=== PATIENT | female | born 1940 | race Caucasian/White ===

== ENCOUNTER 2018-10-05 13:41 | Inpatient (IN) | payer OTHER ==
--- OUTSIDE RECORDS SUMMARY | 2018-10-05 13:44 | XMS REPORT | Clinical Summary ---
:1940 Author Organization [facility] Address [address] [place] [address] Care Team Providers Name Role Phone Kevin Owens MD Primary Care Provider Allergies Active Allergy Reactions Severity Noted Date Comments Sulfamethoxazole-Trimethop Itching 08/19/2016 rim Cephalexin Other (See Comments) 08/19/2016 Generalized edema Penicillins Other (See Comments) 08/19/2016 Generalized Edema Medications Medication Sig Dispensed Refills Start Date End Date Status atorvastatin (LIPITOR) Take 20 mg by 1 08/15/2016 Active 20 MG tablet mouth nightly. levothyroxine Take 37.5 mcg by 0 Active (SYNTHROID, LEVOXYL) 75 mouth every mcg tablet morning. aspirin (ECOTRIN) 81 MG Take 81 mg by 0 Active enteric coated tablet mouth daily. sitaGLIPtin-metformin Take 1 tablet by 0 Active (JANUMET) 50-500 mg per mouth 2 (two) tablet times a day with meals. irbesartan (AVAPRO) 300 Take 300 mg by 0 Active MG tablet mouth daily. clopidogrel (PLAVIX) 75 Take 1 tablet by 1 01/18/2017 Active mg tablet mouth daily. clonIDINE (CATAPRES) Take 1 tablet by 1 03/26/2017 Active 0.1 MG tablet mouth as needed for high blood pressure. glimepiride (AMARYL) 1 Take 1 tablet by 5 02/02/2017 Active MG tablet mouth daily. magnesium oxide Take 1 tablet by 3 01/14/2017 Active (MAG-OX) 400 mg tablet mouth daily. metoprolol succinate XL Take 1 tablet by 0 03/21/2017 Active (TOPROL-XL) 100 mg 24 mouth 2 (two) hr tablet times a day. NIFEdipine CC (ADALAT Take 1 tablet by 3 03/04/2017 Active CC) 30 MG 24 hr tablet mouth daily. isosorbide mononitrate Take 2 tablets by 3 01/26/2017 Active (IMDUR) 30 MG 24 hr mouth daily. tablet folic acid (FOLVITE) 1 Take 1 mg by 0 Active MG tablet mouth daily. esomeprazole (NexIUM) Take 40 mg by 0 Active 40 MG capsule mouth daily. furosemide (LASIX) 40 Take 40 mg by 0 Active mg tablet mouth 2 (two) times a day. 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 Last Filed Vital Signs Not on file Plan of Treatment Health Maintenance Due Date Last Done Comments DIABETIC RETINAL EYE EXAM 1940 DIABETIC FOOT EXAM 09/22/1950 URINE MICROALBUMIN 09/22/1951 SHINGLES VACCINES (#1) 09/22/1991 65+ PNEUMOCOCCAL VACCINE (1 of 2 - PCV13) 2006 INFLUENZA VACCINE 10/16/2018 Implants Implanted Type Area Magnetic Resonance Technologist Device Shelf Model / Identifier Expiration Serial / Lot Date Lead Pace Alton Mycrdl Unipol Tmpry Streamline - [id number] Cardiovascular N/A : [employer] [facility] 06/04/2018 [id number] / Implanted: Qty: 1 on 09/05/2016 by Maxime oTribio MD Implants N/A - CARDIAC / SRGRY Lead Pace Alton Mycrdl Unipol Tmpry Streamline - [id number] Cardiovascular N/A : [employer] [place] 06/13/2018 [id number] / Implanted: Qty: 1 on 09/05/2016 by Maxime Toribio MD Implants N/A - CARDIAC / SRGRY Drain Wnd Chnl 19fr 1/4in Rnd Hbls Fl-Flut Arline - [id number] Surgical N/A: BARD [employer] [id number] / Implanted: 09/05/2016 (Quantity not on file) Implants; N/A DIVISION / Expanders; Extenders; Surgical Wires Catheter Thor Rogers 36fr 20in Str Pvc - [id number] Surgical N/A: COVIDIEN [id number] / Implanted: 09/05/2016 (Quantity not on file) Implants; N/A GALEN / Expanders; HEALTHCARE Extenders; Surgical Wires [place] Perph Vasclr Ptfe 1.2x10cm 1.65mm - [id number] Vascular Graft N/A: BARD 04/14/2021 [id number] / Implanted: 09/05/2016 (Quantity not on file) N/A PERIPHERAL / VASCULAR [id number] Procedures Procedure Name Priority Date/Time Associated Diagnosis Comments ECHOCARDIOGRAM 2D Routine 05/21/2018 11:00 Hypertensive heart Results for this COMPLETE W MMODE AM CUSTOMER GREETER disease without procedure are in SPECTRAL COLOR DOPPLER heart failure the results (12572) section. after 10/04/2017 Results Echocardiogram complete w contrast and 3D if needed (05/21/2018 11:00 AM CUSTOMER GREETER) AoV Area, Vmax 1.67 cm2 HM [facility] AoV Area, VTI 1.82 cm2 [facility] AoV Mean PG 5.00 mmHg HM [facility] AoV Peak PG 9.61 mmHg [facility] AoV Vmax 1.55 m/s [facility] AoV VTI 0.35 m [facility] IVS,d 1.22 cm [facility] IVS/LVPW,2D 0.96 [facility] Left Atrium Dimension Anterior 4.00 cm [facility] LV,d 4.14 cm [facility] LV EF,2D 61.57 % [facility] LV,s 3.17 cm [facility] LVOT area 2.27 cm2 [facility] LVOT Diam,S 1.70 cm [facility] LVOT Vmax 1.28 m/s [facility] LVOT VTI 0.24 m [facility] LVPWD,d 1.27 cm [facility] TR Vpeak 2.28 mm/s [facility] MV E A ratio 1.10 [facility] TR pk grad 18.40 mmHg [facility] MR Vmax 2.96 m/s [facility] MR peak grad 35.05 mmHg [facility] E wave decelartion time 208.00 msec [facility] MV Peak A Dusty 0.84 m/s [facility] MV valve area p 1/2 method 3.65 cm2 [facility] MV Peak E Dusty 0.93 m/s [facility] MV stenosis pressure 1/2 time 60.32 ms [facility] AV LVOT peak gradient 5.20 mmHg [facility] Ao Root,d,2D 2.60 cm [facility] LV SYS VOL 35.29 ml [facility] LV RITCHIE VOL 75.95 ml [facility] LV SV Teich 2D 40.66 ml [facility] LV Vol s Teich PSAX 35.29 ml [facility] AoV Vmn 0.99 [facility] LV FS Teich 2D 27.29 [facility] MV AE ratio 0.91 [facility] LV FS Cube 2D 27.29 [facility] LVOT Vmn 0.71 [facility] Aov area Vmn 1.89 cm2 [facility] LVOT mean grad 2.00 mmHg [facility] MAX Pred HR 143.34 [facility] 85 of MPHR 121.84 [facility] Ao d LA s ratio 0.65 [facility] Calc MPHR 143.34 bpm [facility] LV SV Cube 2D 43.69 ml [facility] LV vol d cube 2D 70.96 ml [facility] LV vol s cube 2D 27.27 ml [facility] MV Decel slope 4.48 m/s2 [facility] Pred Exer Dur R1 6.10 [facility] Pred METS R1 4.73 [facility] Velocity Ratio (V1/V2) 0.83 m/s [facility] EF 53.54 % [facility] E/A ratio 1.11 [facility] Specimen Narrative Performed At Normal cardiac dimensions, except for moderate left atrial enlargement and [facility] mild LVH. Normal left ventricular systolic function and wall motion with a visually estimated EF of 60%. Color flow mapping including dopplerrevealed trace tricuspid regurgitation. There is no evidence of ASD or Pericardial effusion. Performing Organization Address [facility]/State/Zipcode Phone Number [facility] [address] [place] [address] after 10/04/2017 Insurance Payer Benefit Plan / Subscriber ID Effective Dates Phone Address Type Group HUMANA MEDICARE HUMANA MEDICARE xxxxxxxxx 2017-Present PPO PPO/PFFS/ERS [facility] ([place]) [place] [address] Advance Directives Patient has advance care planning documents on file. For more information, please contact:Yefri Oakes[address] [place] [address]
[2018-10-05 14:11] LABS: Absolute Lymphocytes (CBC) 0.5 K/uL (0.7-4.9); Basophils % 0.3 % (0-1.3); Hematocrit 30.6 % (36.0-45.0); Lymphocytes % 13.1 % (15.3-44.8); MPV 8.2 fL (7.6-11.3); RBC Red Blood Cell Count 3.39 M/uL (3.86-4.86)
[2018-10-05 14:31] LABS: ALT/SGPT 22 U/L (12-78); AST/SGOT 11 U/L (15-37); Alkaline Phosphatase 69 U/L (45-117); BUN Blood Urea Nitrogen 46 mg/dL (7-18); Bicarbonate 23 mmol/L (21-32); Bilirubin Direct 0.2 mg/dL (0-0.2); Bilirubin Total 0.7 mg/dL (0.2-1.0); Glucose Level 191 mg/dL (74-106); Magnesium 2.7 mg/dL (1.8-2.4); NT PRO-BNP 462 pg/mL (<450); Potassium 4.7 mmol/L (3.5-5.1); Protein, Total 7.1 g/dL (6.4-8.2); Sodium Level 139 mmol/L (136-145); Troponin (Emerg Dept Use Only) < 0.02 ng/mL (0.0-0.045)
--- NOTE | 2018-10-05 14:34 | RAD REPORT ---
EXAM DESCRIPTION: RAD - Chest Single View - 10/05/2018 2:06 pm CLINICAL HISTORY: CHEST PAIN Chest pain. COMPARISON: <Comparisons> FINDINGS: Portable technique limits examination quality. Mild linear subsegmental atelectasis is present in the left mid lung. Changes of a prior CABG are not ed. No displaced fractures.Sternotomy wires present. Heart size is within normal limits. IMPRESSION: No acute intrathoracic process suspected.
[2018-10-05 14:53] LABS: Protime INR 1.04
--- NOTE | 2018-10-05 17:10 | ER ---
Nurse's Notes [facility] Name: Jenna Oropeza Age: 78 yrs Sex: Female : 1940 Arrival Date: 10/05/2018 Time: 13:43 Bed 23 Private MD: Kevin Owens V Diagnosis: Unstable angina Presentation: 10/05 13:50 Presenting complaint: buzzing sound in right ear decreased hearing in right ear, hb dizziness, nausea, and chest tightness that started 15 mins FLIGHT SERVICE AGENT. Transition of care: patient was not received from another setting of care. Onset of symptoms was October 05, 2018 at 13:30. Risk Assessment: Do you want to hurt yourself or someone else? Patient reports no desire to harm self or others. Care prior to arrival: None. 13:50 Method Of Arrival: Wheelchair hb 13:50 Acuity: MARIBELL 3 hb 14:11 Initial Sepsis Screen: Does the patient meet any 2 criteria? No. Patient's initial ca1 sepsis screen is negative. Does the patient have a suspected source of infection? No. Patient's initial sepsis screen is negative. Historical: - Allergies: 13:53 PENICILLINS; hb 13:53 sulfamethoxazole-trimethoprim; hb - Home Meds: 16:47 magnesium oxide 400 mg Oral tab [Active]; Theracran oral oral [Active]; ranolazine oral ca1 500mg oral 1 tab 2 times per day [Active]; carvedilol 25 mg oral tab 1 tab 2 times per day [Active]; atorvastatin 20 mg oral tab 1 tab once daily [Active]; nifedipine 30 mg Oral TbER 1 tab once daily [Active]; glimepiride 4 mg Oral tab .5 tab once daily [Active]; pantoprazole 40 mg oral TbEC 1 tab once daily [Active]; isosorbide mononitrate 60 mg Oral Tb24 1 tab once daily [Active]; folic acid 1 mg Oral tab 1 tab once daily [Active]; Januvia 100 mg oral tab 1 tab once daily [Active]; losartan 100 mg oral tab 1 tab once daily [Active]; clopidogrel 75 mg oral tab 1 tab once daily [Active]; - PMHx: 17:11 CAD; Diabetes - NIDDM; High Cholesterol; Hypertension; ca1 - PSHx: 13:53 cardiac stents; 10 inches of intestines taken out; Hysterectomy; hb 17:11 CABG; Appendectomy; ca1 - Immunization history:: Adult Immunizations up to date. - Social history:: Smoking status: Patient/guardian denies using tobacco. - Ebola Screening: : No symptoms or risks identified at this time. Screenin:06 Abuse screen: Denies threats or abuse. Denies injuries from another. Nutritional ca1 screening: No deficits noted. Tuberculosis screening: No symptoms or risk factors identified. Fall Risk IV access (20 points). Assessment: 13:48 Reassessment: Dr. Weiss at bedside evaluate pt. hb 14:06 General: Appears in no apparent distress. comfortable, Behavior is calm, cooperative, ca1 appropriate for age. General:. Pain: Complains of pain in chest Pain does not radiate. Pain currently is 2 out of 10 on a pain scale. Quality of pain is described as pressure, Pain began 30 min ago. Is intermittent. Neuro: Level of Consciousness is awake, alert, obeys commands, Oriented to person, place, time, situation. Neuro: Anesthesiology Teacher are equal bilaterally Moves all extremities. Speech is normal, Facial symmetry appears normal. Neuro:. Neuro: Reports dizziness. Cardiovascular: Heart tones S1 S2 present Capillary refill < 3 seconds Patient's skin is warm and dry. Pulses are all present. Edema is absent. Rhythm is sinus bradycardia. Respiratory: Airway is patent Respiratory effort is even, unlabored, Respiratory pattern is regular, symmetrical, Breath sounds are clear bilaterally. GI: Abdomen is round non-distended, Bowel sounds present X 4 quads. Abd is soft and non tender X 4 quads. Reports nausea. : No deficits noted. No signs and/or symptoms were reported regarding the genitourinary system. EENT: Reports ringing in right ear. Derm: Skin is intact, is healthy with good turgor, Skin is pink, warm \T\ dry. Musculoskeletal: Circulation, motion, and sensation intact. Capillary refill < 3 seconds, Range of motion: intact in all extremities. 14:44 Reassessment: Patient appears in no apparent distress at this time. Patient and/or ca1 family updated on plan of care and expected duration. Pain level reassessed. Patient is alert, oriented x 3, equal unlabored respirations, skin warm/dry/pink. Family at bedside. Pt talking to family. 15:14 Reassessment: Patient appears in no apparent distress at this time. Patient and/or ca1 family updated on plan of care and expected duration. Pain level reassessed. Patient is alert, oriented x 3, equal unlabored respirations, skin warm/dry/pink. Dr. Weiss at bedside to discuss test results and plan of care. 16:05 Reassessment: Patient appears in no apparent distress at this time. Patient and/or ca1 family updated on plan of care and expected duration. Pain level reassessed. Patient is alert, oriented x 3, equal unlabored respirations, skin warm/dry/pink. Pt on the phone, talking to family. 16:49 Reassessment: Patient appears in no apparent distress at this time. Patient is alert, ca1 oriented x 3, equal unlabored respirations, skin warm/dry/pink. Dr. Weiss at bedside. 17:32 Reassessment: Patient appears in no apparent distress at this time. Patient is alert, ca1 oriented x 3, equal unlabored respirations, skin warm/dry/pink. Pt eating dinner. 18:30 Reassessment: Patient appears in no apparent distress at this time. Patient and/or ca1 family updated on plan of care and expected duration. Pain level reassessed. Patient is alert, oriented x 3, equal unlabored respirations, skin warm/dry/pink. Awaiting room assignment. 19:23 Reassessment: Patient appears in no apparent distress at this time. Patient and/or ca1 family updated on plan of care and expected duration. Pain level reassessed. Patient is alert, oriented x 3, equal unlabored respirations, skin warm/dry/pink. 19:51 Reassessment: Dr. Owens at bedside. ca1 Vital Signs: 13:52 BP 148 / 57; Pulse 55; Resp 16; Temp 98.2; Pulse Ox 98% on R/A; Weight 79.38 kg; Height hb 5 ft. 6 in. (167.64 cm); Pain 0/10; 14:06 BP 123 / 54; Pulse 52; Resp 14; Pulse Ox 95% on R/A; ca1 14:44 BP 132 / 55; Pulse 53; Resp 13 S; Pulse Ox 95% on R/A; ca1 15:03 BP 145 / 49; Pulse 55; Resp 14 S; Pulse Ox 94% on R/A; ca1 16:05 BP 166 / 52; Pulse 54; Resp 13 S; Temp 97.8(O); Pulse Ox 97% on R/A; ca1 16:30 BP 160 / 49; Pulse 52; Resp 13 S; Pulse Ox 95% ; ca1 17:03 BP 166 / 55; Pulse 54; Resp 18 S; Temp 98(O); Pulse Ox 98% on R/A; ca1 17:45 BP 153 / 52; Pulse 59; Resp 14 S; Temp 98(O); Pulse Ox 98% on R/A; ca1 18:39 BP 155 / 46; Pulse 59; Resp 20 S; Pulse Ox 98% on R/A; ca1 19:23 BP 145 / 51; Pulse 60; Resp 15 S; Temp 98.1(O); Pulse Ox 96% on R/A; ca1 13:52 Body Mass Index 28.25 (79.38 kg, 167.64 cm) hb ED Course: 13:43 Patient arrived in ED. mr 13:43 Kevin Owens MD is Private Physician. mr 13:47 Dandy Weiss MD is Attending Physician. gs 13:52 Triage completed. hb 13:53 Arm band placed on. hb 14:03 No provider procedures requiring assistance completed. Inserted saline lock: 20 gauge ca1 in right antecubital area, using aseptic technique. Blood collected. Patient maintains SpO2 saturation greater than 95% on room air. 14:04 XRAY Chest (1 view) In Process Unspecified. EDMS 14:05 Alina Lee, RN is Primary Nurse. ca1 14:06 Patient has correct armband on for positive identification. Placed in gown. Bed in low ca1 position. Call light in reach. Side rails up X 1. price changer on. Pulse ox on. NIBP on. Warm blanket given. 16:18 Troponin (emerg Dept Use Only) Sent. ca1 16:18 Repeat lab(s) drawn. by id, sent to lab. ca1 17:06 Kevin Owens MD is Hospitalizing Provider. gs 18:41 Patient admitted, IV remains in place. ca1 Administered Medications: 17:27 Drug: Aspirin Chewable Tablet 324 mg Route: PO; ca1 18:31 Follow up: Response: No adverse reaction ca1 Point of Care Testing: Blood Glucose: 13:50 Blood Glucose: 151 mg/dL; hb Ranges: Outcome: 17:08 Decision to Hospitalize by Provider. gs 19:33 Admitted to Med/surg accompanied by tech, via wheelchair, room 214, with chart, Report ca1 called to Natalya Galvez RN 19:33 Condition: stable 19:33 Instructed on the need for admit. 19:57 Patient left the ED. ca1 Signatures: Dispatcher [employer] TARYN Salena Adams MonteroMadelaine RN RN hb Dandy Weiss MD MD Jesus, GEOFF Fuller RN ca1 Corrections: (The following items were deleted from the chart) 15:29 13:50 Presenting complaint: buzzing sound in right era, decreased hearing in right ear, hb dizziness, nausea, and chest tightness that started 15 mins FLIGHT SERVICE AGENT hb
--- NOTE | 2018-10-05 17:10 | EDPHYS ---
Physician Documentation [facility] Name: Jenna Oropeza Age: 78 yrs Sex: Female : 1940 Arrival Date: 10/05/2018 Time: 13:43 Bed 23 Private MD: Kevin Owens V ED Physician Dandy Weiss HPI: 10/05 17:29 This 78 yrs old Female presents to ER via Wheelchair with complaints of gs Dizziness. 17:29 The patient presents with lightheadedness. Onset: The symptoms/episode began/occurred gs acutely, just prior to arrival. Modifying factors: The symptoms are alleviated by nothing, the symptoms are aggravated by nothing. Associated signs and symptoms: Pertinent positives: chest pain. Severity of symptoms: At their worst the symptoms were moderate in the emergency department the symptoms have resolved. The patient has experienced similar episodes in the past, a few times. OVER PAST WEEK INCREASED EPISODES OF CHEST PAIN REQUIRING INCREASED USED OF NTG SPRAY. Historical: - Allergies: 13:53 PENICILLINS; hb 13:53 sulfamethoxazole-trimethoprim; hb - Home Meds: 16:47 magnesium oxide 400 mg Oral tab [Active]; Theracran oral oral [Active]; ranolazine oral ca1 500mg oral 1 tab 2 times per day [Active]; carvedilol 25 mg oral tab 1 tab 2 times per day [Active]; atorvastatin 20 mg oral tab 1 tab once daily [Active]; nifedipine 30 mg Oral TbER 1 tab once daily [Active]; glimepiride 4 mg Oral tab .5 tab once daily [Active]; pantoprazole 40 mg oral TbEC 1 tab once daily [Active]; isosorbide mononitrate 60 mg Oral Tb24 1 tab once daily [Active]; folic acid 1 mg Oral tab 1 tab once daily [Active]; Januvia 100 mg oral tab 1 tab once daily [Active]; losartan 100 mg oral tab 1 tab once daily [Active]; clopidogrel 75 mg oral tab 1 tab once daily [Active]; - PMHx: 17:11 CAD; Diabetes - NIDDM; High Cholesterol; Hypertension; ca1 - PSHx: 13:53 cardiac stents; 10 inches of intestines taken out; Hysterectomy; hb 17:11 CABG; Appendectomy; ca1 - Immunization history:: Adult Immunizations up to date. - Social history:: Smoking status: Patient/guardian denies using tobacco. - Ebola Screening: : No symptoms or risks identified at this time. ROS: 17:29 All other systems are negative. gs 18:11 Cardiovascular: Positive for chest pain, describes as pressure typical chest pain she gs has had in past and increased frequency this week. Exam: 17:29 Head/Face: Normocephalic, atraumatic. Eyes: Pupils equal round and reactive to light, gs extra-ocular motions intact. Lids and lashes normal. Conjunctiva and sclera are non-icteric and not injected. Cornea within normal limits. Periorbital areas with no swelling, redness, or edema. ENT: Nares patent. No nasal discharge, no septal abnormalities noted. Tympanic membranes are normal and external auditory canals are clear. Oropharynx with no redness, swelling, or masses, exudates, or evidence of obstruction, uvula midline. Mucous membranes moist. Neck: Trachea midline, no thyromegaly or masses palpated, and no cervical lymphadenopathy. Supple, full range of motion without nuchal rigidity, or vertebral point tenderness. No Meningismus. Chest/axilla: Normal chest wall appearance and motion. Nontender with no deformity. No lesions are appreciated. Cardiovascular: Regular rate and rhythm with a normal S1 and S2. No gallops, murmurs, or rubs. Normal PMI, no JVD. No pulse deficits. Respiratory: Lungs have equal breath sounds bilaterally, clear to auscultation and percussion. No rales, rhonchi or wheezes noted. No increased work of breathing, no retractions or nasal flaring. Abdomen/GI: Soft, non-tender, with normal bowel sounds. No distension or tympany. No guarding or rebound. No evidence of tenderness throughout. Back: No spinal tenderness. No costovertebral tenderness. Full range of motion. Skin: Warm, dry with normal turgor. Normal color with no rashes, no lesions, and no evidence of cellulitis. MS/ Extremity: Pulses equal, no cyanosis. Neurovascular intact. Full, normal range of motion. Neuro: Awake and alert, GCS 15, oriented to person, place, time, and situation. Cranial nerves II-XII grossly intact. Motor strength 5/5 in all extremities. Sensory grossly intact. Cerebellar exam normal. Normal gait. 17:29 Constitutional: The patient appears alert, awake. 17:29 ECG was reviewed by the Attending Physician. Vital Signs: 13:52 BP 148 / 57; Pulse 55; Resp 16; Temp 98.2; Pulse Ox 98% on R/A; Weight 79.38 kg; Height hb 5 ft. 6 in. (167.64 cm); Pain 0/10; 14:06 BP 123 / 54; Pulse 52; Resp 14; Pulse Ox 95% on R/A; ca1 14:44 BP 132 / 55; Pulse 53; Resp 13 S; Pulse Ox 95% on R/A; ca1 15:03 BP 145 / 49; Pulse 55; Resp 14 S; Pulse Ox 94% on R/A; ca1 16:05 BP 166 / 52; Pulse 54; Resp 13 S; Temp 97.8(O); Pulse Ox 97% on R/A; ca1 16:30 BP 160 / 49; Pulse 52; Resp 13 S; Pulse Ox 95% ; ca1 17:03 BP 166 / 55; Pulse 54; Resp 18 S; Temp 98(O); Pulse Ox 98% on R/A; ca1 17:45 BP 153 / 52; Pulse 59; Resp 14 S; Temp 98(O); Pulse Ox 98% on R/A; ca1 18:39 BP 155 / 46; Pulse 59; Resp 20 S; Pulse Ox 98% on R/A; ca1 19:23 BP 145 / 51; Pulse 60; Resp 15 S; Temp 98.1(O); Pulse Ox 96% on R/A; ca1 13:52 Body Mass Index 28.25 (79.38 kg, 167.64 cm) hb MDM: 13:52 Patient medically screened. gs 16:59 HEART Score: History: Highly Suspicious (2), ECG: Non specific repolarization gs disturbance / LBTB / PM (1), Age: > or = 65 years (2), Risk Factors: > or = 3 Risk factors for atherosclerotic disease (2), [Hypercholesterolemia] [Hypertension] Troponin: < or = 1 x Normal Limit (0). 17:29 Differential diagnosis: cardiac arrhythmia, vertigo, UNSTABLE ANGINA, CAD. Data gs reviewed: vital signs, nurses notes. Counseling: I had a detailed discussion with the patient and/or guardian regarding: the historical points, exam findings, and any diagnostic results supporting the discharge/admit diagnosis, the need for further work-up and treatment in the hospital. Admission orders: after a detailed discussion of the patient's condition and case, the admit orders are written by me. ED course: SPOKE WITH CONNOR WILL SEE SOON. 10/05 13:52 Order name: Basic Metabolic Panel 10/05 13:52 Order name: CBC with Diff 10/05 13:52 Order name: LFT's 10/05 13:52 Order name: Magnesium; Complete Time: 14:38 10/05 13:52 Order name: NT PRO-BNP; Complete Time: 14:38 10/05 13:52 Order name: PT-INR; Complete Time: 16:03 10/05 13:52 Order name: Troponin (emerg Dept Use Only); Complete Time: 14:38 10/05 13:53 Order name: Glucose, Ancillary Testing; Complete Time: 14:38 [facility] 10/05 13:53 Order name: Basic Metabolic Panel; Complete Time: 14:38 [facility] 10/05 13:53 Order name: CBC with Automated Diff; Complete Time: 14:38 [facility] 10/05 13:53 Order name: Liver (Hepatic) Function; Complete Time: 14:38 [facility] 10/05 15:15 Order name: Troponin (emerg Dept Use Only); Complete Time: 16:44 10/05 18:07 Order name: Troponin I [facility] 10/05 18:07 Order name: Troponin I [facility] 10/05 13:52 Order name: XRAY Chest (1 view); Complete Time: 14:38 10/05 13:52 Order name: EKG; Complete Time: 13:54 10/05 13:52 Order name: Cardiac monitoring; Complete Time: 14:12 10/05 13:52 Order name: EKG - Nurse/Tech; Complete Time: 14:12 10/05 13:52 Order name: IV Saline Lock; Complete Time: 14:12 10/05 13:52 Order name: Labs collected and sent; Complete Time: 14:12 10/05 13:52 Order name: O2 Per Protocol; Complete Time: 14:12 10/05 13:52 Order name: O2 Sat Monitoring; Complete Time: 14:12 10/05 18:07 Order name: EKG Electrocardiogram [facility] 10/05 18:07 Order name: EKG Electrocardiogram [facility] 10/05 18:07 Order name: EKG Electrocardiogram [facility] 10/05 18:07 Order name: EKG Electrocardiogram [facility] EC:29 Rate is 70 beats/min. Rhythm is regular. MD interval is normal. QRS interval is normal. gs QT interval is normal. T waves are Inverted in lead aVL. ST Segment is depressed in lead aVL. Clinical impression: NSR w/ Non-specific ST/T Changes and MIMINAL J POINT ELEVATION LEAD III. Interpreted by me. Administered Medications: 17:27 Drug: Aspirin Chewable Tablet 324 mg Route: PO; ca1 18:31 Follow up: Response: No adverse reaction ca1 Point of Care Testing: Blood Glucose: 13:50 Blood Glucose: 151 mg/dL; hb Ranges: Critical Glucose Levels:Adult <50 mg/dl or >400 mg/dl <40 mg/dl or >180 mg/dl Disposition: 10/05/18 17:08 Hospitalization ordered by Kevin Owens for Inpatient Admission. Preliminary diagnosis is Unstable angina. - Bed requested for Telemetry/MedSurg (Inpatient). - Status is Inpatient Admission. ca1 - Condition is Stable. - Problem is new. - Symptoms are resolved. UTI on Admission? No Signatures: Dispatcher [employer] [facility] Neelima Tinoco RN RN Madelaine Montero RN RN Dandy Weiss MD MD Alina Lee RN RN [facility] Corrections: (The following items were deleted from the chart) 18:31 17:08 Hospitalization Ordered by Kevin Owens MD for Inpatient Admission. Preliminary dw diagnosis is Unstable angina. Bed requested for Telemetry/MedSurg (Inpatient). Status is Inpatient Admission. Condition is Stable. Problem is new. Symptoms are resolved. UTI on Admission? No. gs 19:57 18:31 10/05/2018 17:08 Hospitalization Ordered by Kevin Owens MD for Inpatient ca1 Admission. Preliminary diagnosis is Unstable angina. Bed requested for Telemetry/MedSurg (Inpatient). Status is Inpatient Admission. Condition is Stable. Problem is new. Symptoms are resolved. UTI on Admission? No. dw
[2018-10-05] MEDS ORDERED: ASPIRIN 81 MG CHEWABLE TABLET ONE (17:42)
[2018-10-05] MEDS ORDERED: ACETAMINOPHEN 500 MG TAB PO PRN (17:57)
--- NOTE | 2018-10-05 20:41 | P.SSS ---
Patient History Date of Service: 10/05/18 Reason for admission: DIAPHORESIS AND R EAR PAIN History of Present Illness: MS. HOYT IS A KNOWN CARDIAC PATIENT WHO HAS LATELY HAD A VERY DIFFICULT TIME CONTROLLING BP. SHE HAS BEEN BETTER AFTER ADDING SPIRONOLACTONE TO HER MULITIDRUG REGIMEN. SHE USED TO GO TO DR. THOMAS BUT LATER CHANGED TO DR CARRASCO IN [place]. I HAVE ASKED HER TO GET LOCAL APPLIQUE SEWER. SHE TODAY WENT TO URGENT CARE FOR R EAR FULLNESS AND PAIN. SHE WHILE THER HAD EPISODE OF DIAPHORESIS SO SHE WAS SENT TO ER SHE HAS NO CHEST PAIN OR ARM PAIN. Allergies Penicillins Allergy (Intermediate, Verified 10/08/11 20:12) Hives/Rash sulfamethoxazole [From Bactrim] Allergy (Mild, Verified 10/08/11 20:12) Itching trimethoprim [From Bactrim] Allergy (Mild, Verified 10/08/11 20:12) Itching Home Medications: Aspirin 81 mg PO DAILY 10/09/11 Atorvastatin Calcium 20 mg PO BEDTIME 10/09/11 Clopidogrel Bisulfate [Plavix] 75 mg PO DAILY 10/09/11 Estrogens,Conjugated [Premarin] 0.3 mg PO DAILY 10/09/11 Hydrochlorothiazide 25 mg PO DAILY 10/09/11 Irbesartan [Avapro] 300 mg PO DAILY 10/09/11 Levothyroxine [Synthroid] 0.075 mg PO DAILY 10/09/11 Metoprolol Tartrate [Lopressor] 100 mg PO BID 10/09/11 Nifedipine [Nifedipine ER] 60 mg PO DAILY 10/09/11 Isosorbide Mononitrate [Imdur] 30 mg PO DAILY #30 tab.sr.24h 07/01/14 - Past Medical/Surgical History Diabetic: Yes -: DM-NIDDM -: HTN -: Hyperlipidemia -: cardiac stents -: 10 inches of intestines removed - Social History Alcohol use: Yes CD- Drugs: No Caffeine use: Yes Review of Systems 10-point ROS is otherwise unremarkable Physical Examination - Vital Signs Temperature: 98.1 F Blood Pressure: 145/51 Pulse: 60 Respirations: 15 - Physical Exam General: Alert, In no apparent distress HEENT: Atraumatic, PERRLA, Mucous membr. moist/pink, EOMI (NORMAL TM ON R SIDE. NO SIGNS OF INFECTION.), Sclerae nonicteric Neck: Supple, 2+ carotid pulse no bruit, No LAD, Without JVD or thyroid abnormality Respiratory: Clear to auscultation bilaterally, Normal air movement Cardiovascular: Regular rate/rhythm, Normal S1 S2 Gastrointestinal: Normal bowel sounds, No tenderness, Masses (LARGE ABDOMEN WALL HERNIAS, OLD, UNCHANGED. ) Musculoskeletal: No tenderness Integumentary: No rashes Neurological: Normal gait, Normal speech, Normal strength at 5/5 x4 extr, Normal tone, Normal affect Lymphatics: No axilla or inguinal lymphadenopathy - Studies Laboratory Data (last 24 hrs) 10/05/18 14:03: PT 12.3, INR 1.04 10/05/18 14:03: WBC 3.9 L, Hgb 10.4 L, Hct 30.6 L, Plt Count 187 10/05/18 14:03: Sodium 139, Potassium 4.7, BUN 46 H, Creatinine 2.67 H, Glucose 191 H, Magnesium 2.7 H, Total Bilirubin 0.7, AST 11 L, ALT 22, Alkaline Phosphatase 69 - Diagnosis (Problem(s)) (1) Diaphoresis Current Visit: Yes Status: Acute Plan: SHE HAS NO CHEST PAIN. THIS COULD BE RELATED TO VIRAL INFECTION THAN CARDIAC EVENT. SHE HAS HAD STENTS IN CORONARY ARTERIES ABOUT A YEAR AGO. SHE MAY NEED OUTPATIENT STRESS TEST. (2) Otalgia Current Visit: Yes Status: Acute Plan: I DON'T SEE INFECTION. I TOLD HER I WILL FU IN AM TO SEE HOW SHE IS DOING. Qualifiers: Laterality: right Qualified Code(s): H92.01 - Otalgia, right ear - Disposition Disposition: ROUTINE DISCHARGE
[2018-10-05] MEDS ORDERED: ENOXAPARIN 80 MG/0.8 ML SQ SCH (21:00)
[2018-10-05 21:19] VITALS: BMI 30.7
[2018-10-05] MEDS: ENOXAPARIN 80 MG/0.8 ML SQ SCH (21:52)
[2018-10-05] MEDS: NACHLORIDE 0.45% 1,000 ML IV SCH (21:53)
--- NOTE | 2018-10-05 22:04 | CON ---
Date of Consultation: 10/05/2018 Reason For Consultation: Atypical chest pain and dizziness. History Of Present Illness: Ms. Oropeza is a 78-year-old white woman. I saw her in 2014 last. At t hat time, she had coronary artery disease, status post stents. Since then in 2017, she underwent cor onary artery bypass surgery x3. At that time, she did not have an NV. She was being worked up for c ardiac clearance for an abdominal surgery and was found to have a positive stress test. No congestiv e heart failure. CABG was done and she has done well since. She had a stress test last year by Dr. Terrazas, partner is a Dr. Duncan, which was negative. She comes in mostly with dizziness, right ear pain, some diaphoresis. She was placed on antibiotics. She was sent to the emergency room from [facility] because of her diaphoresis. She was admitted. Denied any chest pain, nausea, vomiting, PND, orthopnea, pedal edema, palpitations, or syncope. Her troponin is negative. Her BNP is 462. Her E KG is negative. Chest x-ray is negative. Allergies: SHE IS ALLERGIC TO PENICILLIN AND SULFA. Review of Systems: Negative. Social History: Negative. Family History: Negative. Medications: At home include aspirin, hydrochlorothiazide, Plavix, Avapro, Lipitor, Imdur, Synthroid , estrogen, and nifedipine. Past Medical History: Include diabetes; hypertension; dyslipidemia; coronary artery disease, status post CABG; thyroid issues; and partial colectomy. Physical Examination: Vital Signs: Stable, afebrile. HEENT: Negative. Neck: Supple, no bruit. Chest: Clear. Cardiac: Revealed a regular rhythm and rate. No murmurs, gallops, or rubs. Abdomen: Benign. Extremities: Revealed no clubbing, cyanosis, or edema. Skin: Dry and intact. Neurological: She was nonfocal. Pulses were present distally bilaterally. Diagnostic Data: As mentioned earlier. Also has a creatinine of 2.67, glucose 191. Impression And Plan: 1.Dizziness and diaphoresis, most likely secondary to an ear infection. 2.History of coronary artery disease, status post coronary artery bypass graft. Patient is not havi ng any chest pain. She has some neck pain. Certainly doing another stress test sometime in the futu re may be reasonable, but then does not have to be done as an inpatient. 3.Diabetes. 4.Hypertension, well controlled. 5.Dyslipidemia, well controlled. 6.Hypothyroidism. 7.Status post partial colectomy and this is my biggest concern as her kidney function with a creatin ine of 2.67. Patient is apparently unaware of having any renal issues. I think we need to consider changing her medical regimen. Maybe she should be off Avapro and off hydrochlorothiazide temporarily and watch her creatinine. She should have a Nephrology consult. From a cardiac standpoint, there i s an echo pending for tomorrow. I think she can go home and follow up with Dr. Duncan in [place] in the near future regarding maybe getting another stress test. I will discuss the case with Dr. Owens. ADAN/GOGO Voice ID: [id number] Report ID: [id number]
[2018-10-05 23:16] LABS: Urine Appearance CLOUDY; Urine Bilirubin NEGATIVE (NEG); Urine Blood NEGATIVE (NEG); Urine Color YELLOW; Urine Glucose NEGATIVE (NEG); Urine Protein NEGATIVE (NEG); Urine Specific Gravity 1.015 (1.005-1.030); Urine Urobilinogen 0.2 mg/dL (0.2-1.0); Urine pH 5.5 (5.0-7.0)
[2018-10-05 23:22] LABS: Urine Microscopic Reflex ORDER UMIC
[2018-10-06 00:37] LABS: Urine Bacteria >50 /HPF (<20); Urine Culture Reflex Order REFLEXED; Urine RBC <5 /HPF (NONE SEEN)
[2018-10-06 05:14] LABS: Absolute Lymphocytes (CBC) 0.6 K/uL (0.7-4.9); Basophils % 0.3 % (0-1.3); Hematocrit 27.1 % (36.0-45.0); Lymphocytes % 18.5 % (15.3-44.8); MPV 7.8 fL (7.6-11.3); RBC Red Blood Cell Count 2.96 M/uL (3.86-4.86)
[2018-10-06 05:16] LABS: Potassium 4.2 mmol/L (3.5-5.1)
[2018-10-06 07:58] LABS: Blood Morphology Comment NOT SEEN (NOT SEEN); Platelet Estimate ADEQ
[2018-10-06] MEDS: CARVEDILOL 25 MG TAB PO SCH ×2 (09:36→21:23)
[2018-10-06] MEDS: LOSARTAN POTASSIUM 50 MG TABLET PO SCH (09:36)
[2018-10-06] MEDS: CLOPIDOGREL 75 MG TABLET PO SCH (09:36)
[2018-10-06] MEDS: ASPIRIN EC 81 MG TAB PO SCH (09:36)
[2018-10-06] MEDS: ENOXAPARIN 80 MG/0.8 ML SQ SCH (09:37)
[2018-10-06] MEDS: FOLIC ACID 1 MG TABLET PO SCH (09:37)
[2018-10-06] MEDS: ISOSORBIDE MONO SR 30 MG TAB PO SCH (09:37)
[2018-10-06] MEDS: SITAGLIPTIN PHOS 100 MG TAB PO SCH (09:37)
[2018-10-06] MEDS: MAGNESIUM OXIDE 400 MG TAB PO SCH ×2 (09:41→21:23)
[2018-10-06] MEDS ORDERED: NIFEDIPINE XL 30 MG TABLET PO SCH ×2 (10:00→15:00)
--- NOTE | 2018-10-06 10:01 | RAD REPORT ---
EXAM DESCRIPTION: US - Pelvis Complete - 10/06/2018 9:25 am CLINICAL HISTORY: Pelvic pain/urinary retention COMPARISON: None FINDINGS: The patient had voided prior to the procedure Bladder volume equals 95 cc. No ascites Hysterectomy Right ovary normal in size and echotexture. Left ovary is not seen. Right and left adnexal unremarkable IMPRESSION: The patient had voided prior to the procedure Bladder volume equals 95 cc.
--- NOTE | 2018-10-06 10:05 | RAD REPORT ---
EXAM DESCRIPTION: US - Abdomen Exam Complete - 10/06/2018 9:25 am CLINICAL HISTORY: Abdominal pain COMPARISON: 2016 FINDINGS: The liver has a mildly increased echotexture. A gallstone is not seen. The gallbladder wall is not thickened. The biliary tree is normal caliber. The pancreas pancreatic head and body normal in size and echotexture. Pancreatic tail not well seen s econdary to overlying bowel gas. The right kidney measures 9 centimeters with a mildly increased echotexture. 8 millimeters cyst The left kidney measures 9 centimeters with a mildly increased echotexture. The spleen measures 10 centimeters. The abdominal aorta and inferior vena cava only partially imaged secondary to overlying bowel gas wit hout visualization of an abnormality IMPRESSION: Increased hepatic echotexture consistent with fatty infiltration Mildly increased renal echotexture may indicate parenchymal disease
--- NOTE | 2018-10-06 10:15 | EKG ---
Test Date: 2018-10-06 Test Time: 08:00:43 Environmental Studies Department Chair: DOROTHEA MEASUREMENT RESULTS: Intervals: Rate: 56 OH: 196 QRSD: 100 QT: 452 QTc: 436 [place]: P: 70 OH: 196 QRS: 83 T: 76 INTERPRETIVE STATEMENTS: Sinus bradycardia with premature atrial complexes Otherwise normal ECG Compared to ECG 10/05/2018 22:28:48 Aberrant conduction of supraventricular beat(s) no longer present Electronically Signed On 10-06-18 10:15:40 CDT by Marlon Cardenas
--- NOTE | 2018-10-06 10:15 | EKG ---
Test Date: 2018-10-05 Test Time: 22:28:48 Milk Processing Worker: RT Avila MEASUREMENT RESULTS: Intervals: Rate: 55 ID: [id number] QRSD: 90 QT: 476 QTc: 455 [place]: P: 55 ID: [id number] QRS: 65 T: 78 INTERPRETIVE STATEMENTS: Sinus bradycardia with premature atrial complexes with aberrant conduction RSR' or QR pattern in V1 suggests right ventricular conduction delay Borderline ECG Compared to ECG 10/05/2018 13:58:08 Atrial premature complex(es) now present Aberrant conduction of supraventricular beat(s) now present Electronically Signed On 10-06-18 10:16:01 CDT by Marlon Cardenas
[2018-10-06] MEDS: NACHLORIDE 0.45% 1,000 ML IV SCH ×2 (10:20→13:25)
--- NOTE | 2018-10-06 10:20 | EKG ---
Test Date: 2018-10-05 Test Time: 13:58:08 Welt Rander: SWG MEASUREMENT RESULTS: Intervals: Rate: 49 AK: 190 QRSD: 90 QT: 480 QTc: 433 [place]: P: 41 AK: 190 QRS: 73 T: 84 INTERPRETIVE STATEMENTS: Sinus bradycardia RSR' or QR pattern in V1 suggests right ventricular conduction delay Borderline ECG Compared to ECG 06/30/2014 23:16:41 RSR' in V1 or V2 now present Sinus rhythm no longer present ST (T wave) deviation no longer present Electronically Signed On 10-06-18 10:21:29 CDT by Marlon Cardenas
--- NOTE | 2018-10-06 10:38 | ECHO ---
HEIGHT: 5 ft 5 in WEIGHT: 185 lb 0 oz DATE OF STUDY: 10/06/[address]: Sanchez Gutierrez MD 2-DIMENSIONAL: YES M.MODE: YES DOPPLER: YES COLOR FLOW: YES TDS: NO PORTABLE: NO DEFINITY: NO BUBBLE STUDY: NO DIAGNOSIS: CHEST PAIN CARDIAC HISTORY: CATHERIZATION: YES SURGERY: YES PROSTHETIC VALVE: NO PACEMAKER: NO MEASUREMENTS (cm) DIASTOLIC (NORMALS) SYSTOLIC (NORMALS) IVSd 1.0 (0.6-1.2) LA Diam 3.7 (1.9-4.0) LVEF 77% LVIDd 4.0 (3.5-5.7) LVIDs 2.2 (2.0-3.5) %FS 45% LVPWd 1.0 (0.6-1.2) Ao Diam 2.4 (2.0-3.7) 2 DIMENSIONAL ASSESSMENT: RIGHT ATRIUM: NORMAL LEFT ATRIUM: NORMAL RIGHT VENTRICLE: NORMAL LEFT VENTRICLE: NORMAL TRICUSPID VALVE: NORMAL MITRAL VALVE: NORMAL PULMONIC VALVE: NORMAL AORTIC VALVE: NORMAL PERICARDIAL EFFUSION: NONE AORTIC ROOT: NORMAL LEFT VENTRICULAR WALL MOTION: NORMAL DOPPLER/COLOR FLOW: MILD MITRAL AND TRICUSPID REGURGITATION. NORMAL RIGHT VENTRICULAR SYSTOLIC PRESSURE. COMMENTS: NORMAL 2D ECHOCARDIOGRAM. MILD MITRAL AND TRICUSPID REGURGITATION. TECHNOLOGIST: Angela BOJORQUEZ
[2018-10-06] MEDS ORDERED: GLIMEPIRIDE 2 MG TABLET PO SCH (17:00)
--- NOTE | 2018-10-06 17:58 | P.PN ---
Subjective Date of Service: 10/06/18 Chief Complaint: STABLE Subjective: Improving SHE HAS NO CHEST PAIN, NAUSEA, VOMITING OR DIAPHORESIS. Review of Systems 10-point ROS is otherwise unremarkable Physical Examination - Vital Signs Temperature: 98.7 F Blood Pressure: 172/60 Pulse: 54 Respirations: 18 Pulse Ox (%): 98 - Physical Exam General: Alert, In no apparent distress HEENT: Atraumatic, PERRLA, EOMI Neck: Supple, JVD not distended Respiratory: Clear to auscultation bilaterally, Normal air movement Cardiovascular: Regular rate/rhythm, Normal S1 S2 Gastrointestinal: Normal bowel sounds, No ascites, No tenderness, Other (LARGE PAINLESS ABDOMEN HERNIAS.) Musculoskeletal: No tenderness Integumentary: No rashes Neurological: Normal speech, Normal tone, Normal affect Lymphatics: No axilla or inguinal lymphadenopathy - Studies Medications List Reviewed: Yes Assessment And Plan - Current Problems (Diagnosis) (1) Diaphoresis Current Visit: Yes Status: Acute Plan: SHE HAS NO CHEST PAIN. THIS COULD BE RELATED TO VIRAL INFECTION THAN CARDIAC EVENT. SHE HAS HAD STENTS IN CORONARY ARTERIES ABOUT A YEAR AGO. SHE MAY NEED OUTPATIENT STRESS TEST. (2) Otalgia Current Visit: Yes Status: Acute Plan: I DON'T SEE INFECTION. I TOLD HER I WILL FU IN AM TO SEE HOW SHE IS DOING. Qualifiers: Laterality: right Qualified Code(s): H92.01 - Otalgia, right ear (3) Acute renal insufficiency Current Visit: Yes Status: Acute Plan: IMPROVING DOWN TO 2.2. CREAT. IV FLUIDS CONSULT NEPHROLOGY. SONOGRAM NEG. PVF NORMAL. DEHYDRATION SEEMS TO BE THE ETIOLOGY. SHE IS NOT TAKING ANY DIURETICS.
[2018-10-06] MEDS ORDERED: ATORVASTATIN 20 MG TAB PO SCH (21:00)
[2018-10-06] MEDS: HYDRALAZINE HCL 25 MG TABLET PO SCH (21:23)
[2018-10-07] MEDS: NACHLORIDE 0.45% 1,000 ML IV SCH (01:47)
[2018-10-07 05:54] LABS: Absolute Lymphocytes (CBC) 0.5 K/uL (0.7-4.9); Basophils % 0.3 % (0-1.3); Hematocrit 30.3 % (36.0-45.0); Lymphocytes % 17.3 % (15.3-44.8); RBC Red Blood Cell Count 3.36 M/uL (3.86-4.86)
[2018-10-07 06:07] LABS: Potassium 4.5 mmol/L (3.5-5.1)
[2018-10-07] MEDS: MAGNESIUM OXIDE 400 MG TAB PO SCH (08:38)
[2018-10-07] MEDS: CLOPIDOGREL 75 MG TABLET PO SCH (08:39)
[2018-10-07] MEDS: ISOSORBIDE MONO SR 30 MG TAB PO SCH (08:39)
[2018-10-07] MEDS: FOLIC ACID 1 MG TABLET PO SCH (08:39)
[2018-10-07] MEDS: CARVEDILOL 25 MG TAB PO SCH (08:39)
[2018-10-07] MEDS: SITAGLIPTIN PHOS 100 MG TAB PO SCH (08:40)
[2018-10-07] MEDS: HYDRALAZINE HCL 25 MG TABLET PO SCH ×2 (08:40→13:22)
[2018-10-07] MEDS: LOSARTAN POTASSIUM 50 MG TABLET PO SCH (08:40)
[2018-10-07] MEDS: ASPIRIN EC 81 MG TAB PO SCH (08:40)
[2018-10-07 08:41] VITALS: BP 161/92
[2018-10-07 09:55] VITALS: O2SAT 95
[2018-10-07 11:00] VITALS: TEMP 98.1
--- NOTE | 2018-10-07 12:49 | P.DS ---
Admission Date: 10/05/18 Discharge Date: 10/07/18 Disposition: ROUTINE DISCHARGE Discharge Condition: FAIR Reason for Admission: STABLE - Problems (1) Diaphoresis Current Visit: Yes Status: Acute (2) Otalgia Current Visit: Yes Status: Acute Qualifiers: Laterality: right Qualified Code(s): H92.01 - Otalgia, right ear (3) Acute renal insufficiency Current Visit: Yes Status: Acute Brief History of Present Illness: MS. HOYT IS A KNOWN CARDIAC PATIENT WHO HAS LATELY HAD A VERY DIFFICULT TIME CONTROLLING BP. SHE HAS BEEN BETTER AFTER ADDING SPIRONOLACTONE TO HER MULITIDRUG REGIMEN. SHE USED TO GO TO DR. THOMAS BUT LATER CHANGED TO DR CARRASCO IN [place]. 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 SHE TODAY WENT TO URGENT CARE FOR R EAR FULLNESS AND PAIN. SHE WHILE THER HAD EPISODE OF DIAPHORESIS SO SHE WAS SENT TO ER SHE HAS NO CHEST PAIN OR ARM PAIN. MR GUTIERREZ IS DOING A LOT BETTER. SHEIS AMBULATING. ON IV FLUIDS HER RENAL FUNCTION IMPROVED DOWN TO 1.88 FROM 2.5. SHE WILL CONTINUE ORAL HYDRATION. I HAVE ADDED HYDRALAZINE. SHEHAS DR AGUILAR CARDIOLGOSIT AND SHE WILL FUTHERE. STABLE FOR DC. SONOGRAM OF RENAL AREA WAS NORMAL. Vital Signs/Physical Exam: Temp Pulse Resp BP Pulse Ox 98.1 F 62 18 161/92 H 95 10/07/18 08:00 10/07/18 08:39 10/07/18 08:00 10/07/18 08:39 10/07/18 08:00 Laboratory Data at Discharge: WBC 3.1 K/uL (4.3-10.9) L 10/07/18 05:15 Hgb 10.7 g/dL (12.0-15.0) L 10/07/18 05:15 Hct 30.3 % (36.0-45.0) L 10/07/18 05:15 Plt Count 170 K/uL (152-406) 10/07/18 05:15 PT 12.3 SECONDS (9.5-12.5) 10/05/18 14:03 INR 1.04 10/05/18 14:03 Sodium 141 mmol/L (136-145) 10/07/18 05:15 Potassium 4.5 mmol/L (3.5-5.1) 10/07/18 05:15 BUN 31 mg/dL (7-18) H 10/07/18 05:15 Creatinine 1.88 mg/dL (0.55-1.3) H 10/07/18 05:15 Glucose 77 mg/dL (74-106) 10/07/18 05:15 Magnesium 2.7 mg/dL (1.8-2.4) H 10/05/18 14:03 Total Bilirubin 0.7 mg/dL (0.2-1.0) 10/05/18 14:03 AST 11 U/L (15-37) L 10/05/18 14:03 ALT 22 U/L (12-78) 10/05/18 14:03 Alkaline Phosphatase 69 U/L (45-117) 10/05/18 14:03 Troponin I < 0.02 ng/mL (0.0-0.045) 10/05/18 23:40 Home Medications: Atorvastatin Calcium 20 mg PO BEDTIME 10/09/11 Clopidogrel Bisulfate [Plavix] 75 mg PO DAILY 10/09/11 Nifedipine [Nifedipine ER] 30 mg PO DAILY 10/09/11 Carvedilol [Coreg] 1 tab PO BID 10/05/18 Folic Acid 1 tab PO DAILY 10/05/18 Glimepiride [Amaryl*] 1 tab PO BEDTIME 10/05/18 Isosorbide Mononitrate [Imdur] 60 mg PO DAILY 10/05/18 Losartan Potassium [Cozaar] 1 tab PO DAILY 10/05/18 Pantoprazole [Protonix Tab*] 1 tab PO DAILY 10/05/18 Ranolazine [Ranolazine ER] 500 mg PO BID 10/05/18 Sitagliptin Phosphate [Januvia*] 1 tab PO DAILY 10/05/18 Magnesium Oxide [Magnesium] 1 tab PO DAILY 10/06/18 Hydralazine HCl 25 mg PO TID #90 tablet 10/07/18 New Medications: Hydralazine HCl 25 mg PO TID #90 tablet
== END 2018-10-07 13:42 | disposition home or self-care (01) | DRG 700 ==
LOC: ER 13:41 → ERHOLD 17:56 → 2ND 19:37
PROVIDERS: ADMIT Internal Medicine; ATTEND Internal Medicine
DX: N28.9 Disorder of kidney and ureter, unspecified (principal); H92.01 Otalgia, right ear; R61 Generalized hyperhidrosis; E86.0 Dehydration; E11.9 Type 2 diabetes mellitus without complications; I10 Essential (primary) hypertension; I25.10 Atherosclerotic heart disease of native coronary artery without angina pectoris; E78.5 Hyperlipidemia, unspecified; E03.9 Hypothyroidism, unspecified; Z79.82 Long term (current) use of aspirin; Z95.1 Presence of aortocoronary bypass graft; Z95.5 Presence of coronary angioplasty implant and graft; Z90.49 Acquired absence of other specified parts of digestive tract; Z88.0 Allergy status to penicillin; Z88.2 Allergy status to sulfonamides
CPT/HCPCS: 36415; 71045; 76700; 76856; 76857; 80048; 80076; 81003; 81015; 82306; 82962; 83735; 83880; 83970; 84484; 85025; 85610; 87077; 87086; 87088; 87186; 93005; 93306; 99285; J1650

== ENCOUNTER 2021-07-13 15:14 | Inpatient (IN) | payer OTHER ==
[2021-07-13 16:36] LABS: SARS-COV-2 RT PCR NEGATIVE (NEGATIVE)
--- OUTSIDE RECORDS SUMMARY | 2021-07-13 17:04 | XMS REPORT | Continuity of Care Document ---
:1940 Author Organization [facility] t Address [address] [place] [address] Care Team Providers Name Role Phone [email or web address] Attending Clinician Unavailable JENNIFER Attending Clinician Unavailable [email or web address]_Cathey Admitting Clinician Unavailable Payers Payer Name Policy Type Policy Number Effective Date Expiration Date S ource [facility] [id number] (MEDICARE REPLACEMENT/ADVANTAGE - PPO) [facility] [id number] Problems This patient has no known problems. Allergies, Adverse Reactions, Alerts This patient has no known allergies or adverse reactions. Medications This patient has no known medications. Procedures This patient has no known procedures. Encounters Start End Encounter Admission Attending Care Care Encounter Source Date/Time Date/Time Type Type Clinicians Facility Department ID 2021-07-07 2021-07-07 Outpatient [facility] PRIV [id number] [facility] 11:47:00 11:47:00 _Cathey [id number] Medica l 2021-07-06 2021-07-06 Outpatient [facility] PRIV [id number] [facility] 12:12:00 12:12:00 _Cathey [id number] Medica l 2021-07-05 2021-07-05 Outpatient [facility] PRIV PRIV [id number] [facility] 12:33:00 12:33:00 _Cathey [id number] Medica l 2021-06-21 2021-06-21 Outpatient [facility] [id number] [place] 00:00:00 00:00:[address] 2021-01-09 2021-01-09 Outpatient JENNIFER [facility] [id number] [place] 00:00:00 00:00:00 [place] [address] 2020-07-15 2020-07-15 Outpatient [facility] PR[facility] PRIV [id number] [facility] 07:33:00 07:33:00 _Cathey [id number] Medica l 2020-07-03 2020-07-03 Outpatient [facility] [id number] [facility] 01:10:00 01:10:00 _Cathey [id number] Medica l Results This patient has no known results.
[2021-07-13] MEDS ORDERED: D50W 25 GM/50 ML SYRINGE IV PRN (17:41)
[2021-07-13] MEDS ORDERED: GLUCAGON 1 MG/VIAL IM PRN (17:41)
[2021-07-13] MEDS ORDERED: D10W 250 ML BAG IV PRN (17:57)
[2021-07-13] MEDS ORDERED: POLYETHYL GLY 3350 17 GM/DOSE PO PRN (18:00)
[2021-07-13] MEDS ORDERED: DIPHENHYDRAMINE 25 MG TAB/CAP PO PRN (18:00)
[2021-07-13] MEDS ORDERED: PNEUMOCOCCAL VACCINE 0.5 ML IMVAC ONE (18:00)
[2021-07-13] MEDS ORDERED: ONDANSETRON 4 MG (ODT) TAB PO PRN (18:00)
[2021-07-13] MEDS ORDERED: ONDANSETRON 4 MG/2 ML VIAL IV PRN (18:00)
[2021-07-13] MEDS ORDERED: LOPERAMIDE HCL 2 MG CAPSULE PO PRN (18:00)
[2021-07-13] MEDS ORDERED: NACHLORIDE 0.45% 1,000 ML IV SCH (18:00)
[2021-07-13 18:03] VITALS: BMI 31.7
[2021-07-13 18:29] LABS: Urine Appearance Clear (Clear); Urine Bilirubin Negative (Negative); Urine Blood Negative (Negative); Urine Color Yellow (Yellow); Urine Glucose Negative (Negative); Urine Protein Negative (Negative); Urine Urobilinogen 0.2 mg/dL (0.2-1.0); Urine pH 6.5 (5.0-7.0)
[2021-07-13 18:49] LABS: Urine Microscopic Reflex ORDER UMIC
[2021-07-13 18:50] LABS: Absolute Lymphocytes (CBC) 0.2 K/uL (0.7-4.9); Hematocrit 30.5 % (36.0-45.0); Lymphocytes % 9.8 % (15.3-44.8); MPV 7.6 fL (7.6-11.3)
--- NOTE | 2021-07-13 19:34 | RAD REPORT ---
EXAM DESCRIPTION: RAD - Chest Pa And Lat (2 Views) - 07/13/2021 7:22 pm CLINICAL HISTORY: direct admit Chest pain. COMPARISON: Chest Single View dated 10/05/2018; CHEST SINGLE VIEW dated 06/30/2014; CHEST SINGLE VIEW dated 10/08/2011; CHEST SINGLE VIEW dated 06/25/2009 FINDINGS: Mild linear opacities are seen in the left lower lung, likely scarring. The lungs are othe rwise clear. The is moderately enlarged. Sternotomy wires are present.
[2021-07-13] MEDS: Meropenem 1,000 MG in NA CHLORIDE 0.9% 100 ML IV SCH (20:05)
[2021-07-13 20:26] LABS: UR MICROALBUMIN 2.4 mg/dL (< 1.9)
[2021-07-13 20:30] LABS: Albumin 4.1 g/dL (3.4-5.0); Bilirubin Direct 0.2 mg/dL (0-0.2); Bilirubin Total 0.8 mg/dL (0.2-1.0); Magnesium 1.9 mg/dL (1.8-2.4); Phosphorus 3.6 mg/dL (2.5-4.9); Potassium 4.2 mmol/L (3.5-5.1); Protein, Total 7.4 g/dL (6.4-8.2); Thyroid Stimulating Hormone 1.02 uIU/mL (0.360-3.740)
[2021-07-13] MEDS ORDERED: cloNIDine HCL 0.1 MG TAB PO PRN (20:50)
[2021-07-13] MEDS: INSULIN -REGULAR HUMAN 50 UNIT/0.5 ML ML SQ SCH (21:00)
[2021-07-13] MEDS ORDERED: Meropenem 500 MG in NA CHLORIDE 0.9% 100 ML IV SCH (21:00)
[2021-07-13] MEDS: FAMOTIDINE 20 MG TAB PO SCH (21:19)
[2021-07-13] MEDS: carvediloL 25 MG TAB PO SCH (21:19)
[2021-07-13] MEDS: ATORVASTATIN 20 MG TAB PO SCH (21:19)
[2021-07-13] MEDS: DOXAZOSIN 2 MG TAB PO SCH (21:19)
[2021-07-13 22:16] LABS: Urine Bacteria <20 /HPF (<20); Urine RBC NONE SEEN /HPF (NONE SEEN)
[2021-07-14] MEDS: ACETAMINOPHEN 325 MG TABLET PO PRN ×3 (02:13→21:07)
[2021-07-14] MEDS: LEVOTHYROXINE SOD 0.075 MG TAB PO SCH (06:05)
[2021-07-14] MEDS: INSULIN -REGULAR HUMAN 50 UNIT/0.5 ML ML SQ SCH ×4 (07:30→20:50)
--- NOTE | 2021-07-14 07:43 | EKG ---
Test Date: 2021-07-13 Test Time: 20:12:45 House Wrecker: RT Avila MEASUREMENT RESULTS: Intervals: Rate: 66 TX: 198 QRSD: 90 QT: 416 QTc: 436 [place]: P: 68 TX: 198 QRS: 81 T: 75 INTERPRETIVE STATEMENTS: Normal sinus rhythm RSR' or QR pattern in V1 suggests right ventricular conduction delay Borderline ECG Compared to ECG 10/06/2018 08:00:43 RSR' in V1 or V2 now present Sinus bradycardia no longer present Atrial premature complex(es) no longer present Electronically Signed On 07-14-21 07:42:13 CDT by Sanchez Gutierrez
[2021-07-14] MEDS ORDERED: NA CHLORIDE 0.9% 100 ML ONE (08:15)
[2021-07-14] MEDS: CLOPIDOGREL 75 MG TABLET PO SCH (08:45)
[2021-07-14] MEDS: ISOSORBIDE MONO SR 30 MG TAB PO SCH (08:46)
[2021-07-14] MEDS: carvediloL 25 MG TAB PO SCH ×2 (08:46→20:48)
[2021-07-14] MEDS: DOXAZOSIN 2 MG TAB PO SCH ×2 (08:47→20:49)
[2021-07-14] MEDS: FAMOTIDINE 20 MG TAB PO SCH ×2 (08:47→20:50)
[2021-07-14] MEDS: FOLIC ACID 1 MG TABLET PO SCH (08:47)
[2021-07-14] MEDS: LOSARTAN POTASSIUM 50 MG TABLET PO SCH (08:47)
[2021-07-14] MEDS: Meropenem 1000 MG/VIAL IV ONE ×2 (08:49→08:50)
[2021-07-14] MEDS: GLIMEPIRIDE 2 MG TABLET PO SCH (08:49)
[2021-07-14] MEDS: ENOXAPARIN 30 MG/0.3 ML SQ SCH (08:50)
[2021-07-14] MEDS ORDERED: allopurinoL 100 MG TAB PO SCH (09:00)
[2021-07-14] MEDS: Meropenem 1,000 MG in NA CHLORIDE 0.9% 100 ML IV SCH (09:00)
[2021-07-14] MEDS ORDERED: DRISDOL (VITAMIN D=ERGOCALCIFEROL) 50000 UNIT CAP PO SCH (09:00)
[2021-07-14] MEDS ORDERED: FUROSEMIDE 40 MG TABLET PO SCH (09:00)
[2021-07-14] MEDS ORDERED: NITROGLYCERIN 0.4 MG/TAB SL PRN (12:27)
--- NOTE | 2021-07-14 12:52 | P.PN ---
Subjective Date of Service: 07/14/21 Chief Complaint: CHILLS TODAY. SHAKES TODAY. CHEST PAIN OFF AND ON MELISSA DID NOT HAVE CHILLS YESTERDAY. SHE HAD LOW GRADE FEVER YESTERDAY WHEN CAME TO OFFICE. SHE HAS HAD ESBL FROM URINE ON 06/29. SHE HAS BEEN TRIED ON MACORDANTIN AND TRIMETHOPRIM BY UROGYNECOLOGIST WITH NO HELP. SHE IS ALLERGIC TO MOST ANTIBIOTICS. I ADVISED HER TO GET ADMITTED TO HAVE PICC LINE AND TAKE IV MERREM FOR 10 DAYS. SHE RELUCTANTLY GOT ADMITTED. TODAY AFTER ANTIBIOTIC SHE HAS CHILLS, SHE DID NOT HAVE IT BEFORE ANTIBIOTIC. SHE ALSO HAS HAD CHEST PAIN OFF AND ON OVER DAYS THAT SHE DID NOT MENTION UNTIL NOW. SHE HAS SEEN A FEW CARDIOLOGISTS IN A YEAR AND LIKES THE LATEST ONE SHE GOES TO. SHE HAS DM, WITH CKD, WITH CAD AND HER BASELINE CREAT IS ABOUT 2.O. SHE ALSO GOES TO GRAPHICS COORDINATOR. NURSES CALLED TWICE SHE HAVING ABOVE SS. DAUGHTER ALSO CALLED AN I TALKED TO THE WHOLE FAMILY. SHE WILL GET CT CHEST ABDOMNEN AND PELVIS, TYELNOL PRN. I WILL STOP MERREM FOR NOW IT MAY BE GIVING HER REACTION SHE IS SENSITIVE TO MANY ANTIBIOTICS. SHE WILL GET TWO MORE BLOOD CULTURES. I WILL KEEP HER HERE UNTIL SHE FEELS BETTER. Review of Systems 10-point ROS is otherwise unremarkable General: Weakness, Malaise, As per HPI Physical Examination - Vital Signs Temperature: 100.8 F Blood Pressure: 142/59 Pulse: 66 Respirations: 16 Pulse Ox (%): 95 - Physical Exam General: Mild distress, Moderate distress (IN AFTERNOON. THIS AM SHE WAS VERY COMFORTABLE AND HAD NO SYMPTOMS. ) HEENT: Atraumatic, PERRLA, EOMI Neck: Supple, JVD not distended Respiratory: Clear to auscultation bilaterally, Normal air movement Cardiovascular: Regular rate/rhythm, Normal S1 S2 Gastrointestinal: Normal bowel sounds, No tenderness Musculoskeletal: No tenderness Integumentary: No rashes Neurological: Normal speech, Normal tone, Normal affect Lymphatics: No axilla or inguinal lymphadenopathy - Studies Laboratory Data (last 24 hrs) 07/13/21 18:27: Sodium 131 L, Potassium 4.2, BUN 38 H, Creatinine 2.99 H, Glucose 115 H, Phosphorus 3.6, Magnesium 1.9 D, Total Bilirubin 0.8, AST 16, ALT 22, Alkaline Phosphatase 41 L 07/13/21 18:27: APTT 36.4 07/13/21 18:27: WBC 2.4 L, Hgb 10.5 L, Hct 30.5 L, Plt Count 146 L Medications List Reviewed: Yes Assessment And Plan - Current Problems (Diagnosis) (1) UTI due to extended-spectrum beta lactamase (ESBL) producing Escherichia coli Current Visit: Yes Status: Acute Plan: INALYSIS, COMPLETE W/REFLEX TO CULTURE COLOR YELLOW DARK YELLOW YELLOW YELLOW APPEARANCE TURBIDA TURBID CLEAR TURBID SPECIFIC GRAVITY 1.010 1.011 1.011 1.010 PH 7.0 < OR = 5.0 6.5 6.5 Glucose NEGATIVE NEGATIVE NEGATIVE NEGATIVE BILIRUBIN NEGATIVE NEGATIVE NEGATIVE NEGATIVE KETONES NEGATIVE NEGATIVE NEGATIVE NEGATIVE OCCULT BLOOD 1+A NEGATIVE NEGATIVE 1+ PROTEIN TRACEA TRACE NEGATIVE TRACE NITRITE POSITIVEA POSITIVE NEGATIVE POSITIVE LEUKOCYTE ESTERASE 3+A 3+ 2+ 3+ WBC PACKEDA PACKED 0-5 > OR = 60 RBC 0-2 NONE SEEN NONE SEEN 0-2 SQUAMOUS EPITHELIAL CELLS NONE SEEN 0-5 0-5 NONE SEEN BACTERIA LISA MANY NONE SEEN MANY HYALINE CAST NONE SEEN 0-5 NONE SEEN NONE SEEN Status: FINAL Accession No.: [id number] Collected: 06/29/2021 11:35 am Completed: 07/02/2021 10:46 pm Test Value Last 3 Values CULTURE, URINE, ROUTINE SOURCE: URINE URINE STOOL STOOL STATUS: FINAL FINAL FINAL FINAL ISOLATE 1: SEE NOTE Greater than 100,000 CFU/mL of Escherichia coli (ESBL) E.coli (ESBL) INT GIACOMO AMOX/CLAVULANATE S 8 AMPICILLIN R >=32 1 AMP/SULBACTAM R >=32 CEFAZOLIN R >=64 2 CEFEPIME S 2 CEFTRIAXONE R >=64 CIPROFLOXACIN R >=4 GENTAMICIN S <=1 IMIPENEM S <=0.25 LEVOFLOXACIN R >=8 NITROFURANTOIN R 256 PIP/TAZOBACTAM S <=4 TOBRAMYCIN S <=1 TRIMETHOPRIM/SULFA S <=20 ESBL RESULT: * 3 THIS IS THE RESULT FROM [facility] ON . SHE FAILED MACRODANTIN AND LATER TRIMETHOPRIM. SHEIS ALLERGIC TO MOST OTHER ABX. SHE MAY HAVE NOW ISSUES WITH MERREM. [facility] REDO CULTURES DESPITE ABX SHE KEPT ON HAVING FEVER AND SO I DECIDED TO ADMIT HER. (2) Diabetes mellitus due to underlying condition with chronic kidney disease on chronic dialysis Current Visit: Yes Status: Chronic Plan: ON SMALL DOSE OF JANUVIA FU DONE IN OFFICE. 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 (4) Drug reaction Current Visit: Yes Status: Acute Plan: THIS A POSSIBILITY. I AM NOT SURE IF INFECTION IS GIVING HER CHILLS OR DRUG REACTION IT WILL BE SAFE TO GIVE HER BENADRYL PRN. (5) Chest pain Onset Date: 07/01/14 Current Visit: No Status: Acute Plan: ABOVE.
[2021-07-14] MEDS ORDERED: DIPHENHYDRAMINE 25 MG TAB/CAP PO PRN (12:56)
--- NOTE | 2021-07-14 13:45 | RAD REPORT ---
EXAM DESCRIPTION: Chest Single View 07/14/2021 12:26 AM CDT CLINICAL HISTORY: 80 years, Female, PICC line placement COMPARISON: None. FINDINGS: Single view of the chest was obtained portable. No prior films are available for compariso n. There is a right upper extremity PICC line tip of the catheter within the cavoatrial junction. The cardiomediastinal silhouette demonstrate to be unremarkable. The heart is not enlarged. The thoracic aorta demonstrate intimal calcification. Sternotomy wires and pericardiac clips correspond to previo us CABG. Implantable loop recorder within the left chest. Costophrenic angles are sharp. No areas o f consolidation or masses are seen. The rest of the soft tissue and bony structures demonstrate to be unremarkable. IMPRESSION: Right upper extremity PICC line in good position. Implantable loop recorder within the left chest. Electronically signed by: Romulo Arambula MD 07/14/2021 12:27 AM CDT Due to temporary technical issues with the PACS/Fluency reporting system, reports are being signed by the in house radiologist without review as a courtesy to ensure prompt reporting. The interpreting r adiologist is fully responsible for the content of the report.
--- NOTE | 2021-07-14 17:12 | RAD REPORT ---
EXAM DESCRIPTION: CT - Chest Abd Pelvis Wo Con - 07/14/2021 3:17 pm CLINICAL HISTORY: Chest and abdominal pain. Fever TECHNIQUE: Computed axial tomography of the chest, abdomen and pelvis was obtained. Oral contrast wa s given. IV contrast was not requested. All CT scans are performed using dose optimization technique as appropriate and may include automated exposure control or mA/KV adjustment according to patient size. FINDINGS: The evaluation of mediastinum, kimberly, vessels and solid organs is limited secondary to the lack of IV contrast administration Calcified lung granulomas are present. Otherwise lungs are clear. Coronary arterial calcifications. No mediastinal or hilar lymphadenopathy is seen. A pleural effusion is not present. A pericardial effusion is not seen. The liver, spleen, pancreas, adrenals and kidneys appear grossly normal There is no evidence of diverticulitis. Right hemicolectomy Ventral hernia within the mid abdomen contains nondilated transverse colon. The hernia sac extends to the right and left of midline. The neck measures 6.2 centimeters. Small umbilical hernia contains fat Hysterectomy. No adnexal mass Sclerosis involves the vertebral endplates of L5 and S1. Most likely this is degenerative in nature. IMPRESSION: Large ventral hernia containing transverse colon
[2021-07-14 17:15] LABS: Absolute Lymphocytes (CBC) 0.1 K/uL (0.7-4.9); Hematocrit 27.3 % (36.0-45.0); Lymphocytes % 3.2 % (15.3-44.8); MPV 7.5 fL (7.6-11.3); RBC Red Blood Cell Count 3.02 M/uL (3.86-4.86)
[2021-07-14] MEDS: AMLODIPINE 5 MG TAB PO SCH (17:25)
[2021-07-14] MEDS: NACHLORIDE 0.45% 1,000 ML IV SCH (17:27)
[2021-07-14 17:34] LABS: Magnesium 1.6 mg/dL (1.8-2.4); Potassium 4.4 mmol/L (3.5-5.1); Troponin High Sensitivity 16.6 pg/mL (<58.9)
[2021-07-14] MEDS ORDERED: MAGNESIUM SULFATE 1 gm IVPB 1 GM/100 ML BAG IV ONE (19:00)
[2021-07-14] MEDS: ATORVASTATIN 20 MG TAB PO SCH (20:50)
[2021-07-15 04:40] LABS: Absolute Lymphocytes (CBC) 0.2 K/uL (0.7-4.9); Hematocrit 26.3 % (36.0-45.0); Lymphocytes % 5.8 % (15.3-44.8); MPV 7.5 fL (7.6-11.3)
[2021-07-15] MEDS: NACHLORIDE 0.45% 1,000 ML IV SCH (04:41)
[2021-07-15 04:54] LABS: Magnesium 2.1 mg/dL (1.8-2.4); Potassium 3.9 mmol/L (3.5-5.1)
[2021-07-15] MEDS: LEVOTHYROXINE SOD 0.075 MG TAB PO SCH (05:39)
[2021-07-15] MEDS: INSULIN -REGULAR HUMAN 50 UNIT/0.5 ML ML SQ SCH ×4 (07:30→20:26)
--- NOTE | 2021-07-15 08:30 | P.PN ---
Subjective Date of Service: 07/15/21 Chief Complaint: BACK TO BASELINE FOR HER Subjective: Improving SHE IS LOT BETTER. SLEPT WELL TODAY. NO CHILLS, NO FEVER, NO PAIN. SHE HAD REACTION TO MERREM YESTERDAY. Review of Systems 10-point ROS is otherwise unremarkable Physical Examination - Vital Signs Temperature: 97.7 F Blood Pressure: 156/65 Pulse: 71 Respirations: 19 Pulse Ox (%): 97 - Physical Exam General: In no apparent distress, Oriented x3 HEENT: Atraumatic, PERRLA, EOMI Neck: Supple, JVD not distended Respiratory: Clear to auscultation bilaterally, Normal air movement Cardiovascular: Regular rate/rhythm, Normal S1 S2 Gastrointestinal: Normal bowel sounds, No tenderness, Distended (LARGE VENTRAL HERNIA, SOFT, NOT TENDER, CHRONIC.) Musculoskeletal: No tenderness Integumentary: No rashes Neurological: Normal speech, Normal tone, Normal affect Lymphatics: No axilla or inguinal lymphadenopathy - Studies Laboratory Data (last 24 hrs) 07/15/21 04:10: Sodium 132 L, Potassium 3.9, BUN 35 H, Creatinine 2.85 H, Glucose 93, Magnesium 2.1 D 07/15/21 04:10: WBC 3.3 L, Hgb 9.2 L, Hct 26.3 L, Plt Count 109 L 07/14/21 20:00: Sodium Cancelled, Potassium Cancelled, BUN Cancelled, Creatinine Cancelled, Glucose Cancelled, Magnesium Cancelled 07/14/21 20:00: WBC Cancelled, Hgb Cancelled, Hct Cancelled, Plt Count Cancelled 07/14/21 17:00: Sodium 131 L, Potassium 4.4, BUN 36 H, Creatinine 2.94 H, Glucose 223 H, Magnesium 1.6 L 07/14/21 17:00: WBC 3.8 L D, Hgb 9.5 L, Hct 27.3 L, Plt Count 119 L Microbiology Data (last 24 hrs): 07/14/21 17:08 Blood - Blood Anaerobic Blood Culture - Final Medications List Reviewed: Yes Assessment And Plan - Current Problems (Diagnosis) (1) UTI due to extended-spectrum beta lactamase (ESBL) producing Escherichia co li Current Visit: Yes Status: Acute Plan: INALYSIS, COMPLETE W/REFLEX TO CULTURE COLOR YELLOW DARK YELLOW YELLOW YELLOW APPEARANCE TURBIDA TURBID CLEAR TURBID SPECIFIC GRAVITY 1.010 1.011 1.011 1.010 PH 7.0 < OR = 5.0 6.5 6.5 Glucose NEGATIVE NEGATIVE NEGATIVE NEGATIVE BILIRUBIN NEGATIVE NEGATIVE NEGATIVE NEGATIVE KETONES NEGATIVE NEGATIVE NEGATIVE NEGATIVE OCCULT BLOOD 1+A NEGATIVE NEGATIVE 1+ PROTEIN TRACEA TRACE NEGATIVE TRACE NITRITE POSITIVEA POSITIVE NEGATIVE POSITIVE LEUKOCYTE ESTERASE 3+A 3+ 2+ 3+ WBC PACKEDA PACKED 0-5 > OR = 60 RBC 0-2 NONE SEEN NONE SEEN 0-2 SQUAMOUS EPITHELIAL CELLS NONE SEEN 0-5 0-5 NONE SEEN BACTERIA LSIA MANY NONE SEEN MANY HYALINE CAST NONE SEEN 0-5 NONE SEEN NONE SEEN Status: FINAL Accession No.: [id number] Collected: 06/29/2021 11:35 am Completed: 07/02/2021 10:46 pm Test Value Last 3 Values CULTURE, URINE, ROUTINE SOURCE: URINE URINE STOOL STOOL STATUS: FINAL FINAL FINAL FINAL ISOLATE 1: SEE NOTE Greater than 100,000 CFU/mL of Escherichia coli (ESBL) E.coli (ESBL) INT GIACOMO AMOX/CLAVULANATE S 8 AMPICILLIN R >=32 1 AMP/SULBACTAM R >=32 CEFAZOLIN R >=64 2 CEFEPIME S 2 CEFTRIAXONE R >=64 CIPROFLOXACIN R >=4 GENTAMICIN S <=1 IMIPENEM S <=0.25 LEVOFLOXACIN R >=8 NITROFURANTOIN R 256 PIP/TAZOBACTAM S <=4 TOBRAMYCIN S <=1 TRIMETHOPRIM/SULFA S <=20 ESBL RESULT: * 3 THIS IS THE RESULT FROM [facility] ON . SHE FAILED MACRODANTIN AND LATER TRIMETHOPRIM. SHEIS ALLERGIC TO MOST OTHER ABX. SHE MAY HAVE NOW ISSUES WITH MERREM. [facility] REDO CULTURES DESPITE ABX SHE KEPT ON HAVING FEVER AND SO I DECIDED TO ADMIT HER. SHE HAD REACTION TO MERREM WITH NAUSEA, CHILLS ETC. I TREATED IT WITHOUT STEROIDS. SHE IS BACK TO BASELINE. SHE HAS ABOVE DEEP SEATED INFECTION IN BLADDER AND HAS FEVER FORM IT. THAT IS WHY SHE IS HERE. SHE FAILED TWO ORAL ABX. NEXT ONE TO TRY IS CEFEPIME IV. SHE IS ALLERGIC TO MANY ANTIBIOTICS. SHE IS WILLING TO TRY THIS. (2) Diabetes mellitus due to underlying condition with chronic kidney disease on chronic dialysis Current Visit: Yes Status: Chronic Plan: ON SMALL DOSE OF JANUVIA FU DONE IN OFFICE. 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 (4) Drug reaction Current Visit: Yes Status: Acute Plan: THIS A POSSIBILITY. I AM NOT SURE IF INFECTION IS GIVING HER CHILLS OR DRUG REACTION IT WILL BE SAFE TO GIVE HER BENADRYL PRN. (5) Chest pain Onset Date: 07/01/14 Current Visit: No Status: Acute Plan: ABOVE.
[2021-07-15] MEDS ORDERED: CEFEPIME 1 GM in NA CHLORIDE 0.9% 100 ML IV SCH (09:00)
[2021-07-15] MEDS: FOLIC ACID 1 MG TABLET PO SCH (09:19)
[2021-07-15] MEDS: FAMOTIDINE 20 MG TAB PO SCH ×2 (09:19→20:25)
[2021-07-15] MEDS: ENOXAPARIN 30 MG/0.3 ML SQ SCH (09:19)
[2021-07-15] MEDS: carvediloL 25 MG TAB PO SCH ×2 (09:19→20:25)
[2021-07-15] MEDS: GLIMEPIRIDE 2 MG TABLET PO SCH (09:19)
[2021-07-15] MEDS: DOXAZOSIN 2 MG TAB PO SCH ×2 (09:19→20:26)
[2021-07-15] MEDS: ISOSORBIDE MONO SR 30 MG TAB PO SCH (09:19)
[2021-07-15] MEDS: CLOPIDOGREL 75 MG TABLET PO SCH (09:20)
[2021-07-15] MEDS: LOSARTAN POTASSIUM 50 MG TABLET PO SCH (09:20)
[2021-07-15] MEDS: CEFEPIME 1 GM in NA CHLORIDE 0.9% 100 ML IV SCH (10:26)
[2021-07-15] MEDS: AMLODIPINE 5 MG TAB PO SCH (17:30)
--- NOTE | 2021-07-15 19:25 | CON ---
Date of Consultation: 07/14/2021 The patient was admitted to Dr. Owens on 07/13/2021. I saw the patient on 07/14/2021. Reason For Consultation: Chest pain. History Of Present Illness: Ms. Oropeza is a 80-year-old woman. She sees Dr. Fleming for cardiolog y in [place]. She used to see Dr. Duncan in the past. She has an extensive past cardiac history inc luding a history of CABG. She has a history of hypertension, diabetes, dyslipidemia, hypothyroidism, and chronic renal disease. Her last creatinine was 2.99. Her last echocardiogram in 2019 was melvi l. She is in the hospital for UTI that is resistant to multiple antibiotics, but while she was here she developed chest pain she described as a sore chest. It was worse when she took a deep breath. S he hurts in the back as well. No nausea, vomiting, diaphoresis, PND, orthopnea, pedal edema, palpita tion, or syncope. She has had some chills, but denied any fever. Past Medical History: As stated above. Allergies: PENICILLIN AND SULFA. Review of Systems: Negative. Social History: Negative. Family History: Negative. Medications: Include allopurinol, Norvasc, glimepiride, Januvia, clonidine p.r.n., Lipitor, Plavix, Lasix, Imdur, Ranexa, doxazosin, Synthroid, losartan, and Coreg. Physical Examination: General: Very pleasant, in no acute distress. Vital Signs: Stable, afebrile. Sinus rhythm. HEENT: Negative. Neck: Supple with no bruit. Chest: Clear. Cardiac Exam: Revealed a regular rhythm and rate with an S4 gallops. No murmurs or rubs. Abdomen: Benign. Extremities: Revealed no clubbing, cyanosis, or edema. Diagnostic Data: Creatinine is 2.99. EKG showed nonspecific changes. She has UTI. Impression And Plan: 1.Chest pain, atypical, most likely musculoskeletal or gastroesophageal reflux disease in nature. I doubt this is coronary related. I would not change her medical therapy. She is not a candidate for any coronary intervention with her creatinine being 2.99. She will follow up with her doctor in the near future in [place]. If her chest pain reoccurs, I would suggest increasing the Ranexa down the road to 1000 b.i.d. Otherwise, continue the present regimen. 2.Her other problems include coronary artery disease status post coronary artery bypass graft that i s stable. 3.Palpitation. She has a [employer] monitor in place. 4.Diabetes, well controlled. 5.Hypertension, well controlled. 6.Dyslipidemia, well controlled. 7.Hypothyroidism, well controlled. 8.Chronic renal disease, stable. The patient apparently almost went into dialysis, but her creatini ne has stabilized since. 9.Her last problem is urinary tract infections, being treated by Dr. Owens. I will be available for questions. I will sign off on the case otherwise. ADAN/GOGO Voice ID: [id number] Report ID: [id number]
[2021-07-15] MEDS: ATORVASTATIN 20 MG TAB PO SCH (20:25)
[2021-07-15] MEDS: ACETAMINOPHEN 325 MG TABLET PO PRN (20:33)
[2021-07-16] MEDS: NACHLORIDE 0.45% 1,000 ML IV SCH ×2 (02:01→20:44)
[2021-07-16 05:16] LABS: Absolute Lymphocytes (CBC) 0.2 K/uL (0.7-4.9); Hematocrit 23.8 % (36.0-45.0); MPV 7.8 fL (7.6-11.3); RBC Red Blood Cell Count 2.62 M/uL (3.86-4.86)
[2021-07-16 05:31] LABS: Magnesium 2.1 mg/dL (1.8-2.4)
[2021-07-16] MEDS: LEVOTHYROXINE SOD 0.075 MG TAB PO SCH (05:41)
[2021-07-16] MEDS: INSULIN -REGULAR HUMAN 50 UNIT/0.5 ML ML SQ SCH ×4 (07:30→20:52)
[2021-07-16] MEDS: ISOSORBIDE MONO SR 30 MG TAB PO SCH (08:23)
[2021-07-16] MEDS: LOSARTAN POTASSIUM 50 MG TABLET PO SCH (08:23)
[2021-07-16] MEDS: carvediloL 25 MG TAB PO SCH ×2 (08:23→20:41)
[2021-07-16] MEDS: DOXAZOSIN 2 MG TAB PO SCH ×2 (08:24→20:40)
[2021-07-16] MEDS: CLOPIDOGREL 75 MG TABLET PO SCH (08:24)
[2021-07-16] MEDS: FOLIC ACID 1 MG TABLET PO SCH (08:24)
[2021-07-16] MEDS: FAMOTIDINE 20 MG TAB PO SCH ×2 (08:24→20:42)
[2021-07-16] MEDS: CEFEPIME 1 GM in NA CHLORIDE 0.9% 100 ML IV SCH (09:06)
--- NOTE | 2021-07-16 09:11 | P.PN ---
Subjective Date of Service: 07/16/21 Chief Complaint: FEELS A LOT BETTER TODAY Subjective: Improving SHE IS LOT BETTER. SLEPT WELL TODAY. NO CHILLS, NO FEVER, NO PAIN. SHE HAD REACTION TO MERREM YESTERDAY. SHE DID NOT HAVE REACTION TO CEFEPIME LIKE SHE HAD TO MERREM. FEELS LOT BETTER. ATE TWO BREAKFASTS TODAY. BROUGHT HER SANDWICH WITH SERVIN, EGGS AND CHEESE. THIS IS NOT A GOOD DIET FOR HER. Review of Systems 10-point ROS is otherwise unremarkable Physical Examination - Vital Signs Temperature: 97.2 F Blood Pressure: 150/65 Pulse: 72 Respirations: 16 Pulse Ox (%): 96 - Physical Exam General: Oriented x3, Mild distress, Obese HEENT: Atraumatic, PERRLA, EOMI Neck: Supple, JVD not distended Respiratory: Clear to auscultation bilaterally, Normal air movement Cardiovascular: Regular rate/rhythm, Normal S1 S2 Gastrointestinal: Normal bowel sounds, No tenderness, Other (LARGE ABDOMEN HERNIA, NO PAIN. ) Musculoskeletal: No tenderness Integumentary: No rashes Neurological: Normal speech, Normal tone, Normal affect Lymphatics: No axilla or inguinal lymphadenopathy - Studies Laboratory Data (last 24 hrs) 07/16/21 04:55: Sodium 131 L, Potassium 4.0, BUN 34 H, Creatinine 2.25 H, Glucose 64 L, Magnesium 2.1 07/16/21 04:55: WBC 1.5 L* D, Hgb 8.2 L, Hct 23.8 L, Plt Count 96 L Microbiology Data (last 24 hrs): 07/13/21 18:26 Clean Catch Urine Drury Count - Final <10,000 CFU/ML. 07/13/21 18:26 Clean Catch Urine - Final MIXED KIMMIE. 07/14/21 17:08 Blood - Blood Anaerobic Blood Culture - Final Medications List Reviewed: Yes Assessment And Plan - Current Problems (Diagnosis) (1) UTI due to extended-spectrum beta lactamase (ESBL) producing Escherichia coli Current Visit: Yes Status: Acute Plan: INALYSIS, COMPLETE W/REFLEX TO CULTURE COLOR YELLOW DARK YELLOW YELLOW YELLOW APPEARANCE TURBIDA TURBID CLEAR TURBID SPECIFIC GRAVITY 1.010 1.011 1.011 1.010 PH 7.0 < OR = 5.0 6.5 6.5 Glucose NEGATIVE NEGATIVE NEGATIVE NEGATIVE BILIRUBIN NEGATIVE NEGATIVE NEGATIVE NEGATIVE KETONES NEGATIVE NEGATIVE NEGATIVE NEGATIVE OCCULT BLOOD 1+A NEGATIVE NEGATIVE 1+ PROTEIN TRACEA TRACE NEGATIVE TRACE NITRITE POSITIVEA POSITIVE NEGATIVE POSITIVE LEUKOCYTE ESTERASE 3+A 3+ 2+ 3+ WBC PACKEDA PACKED 0-5 > OR = 60 RBC 0-2 NONE SEEN NONE SEEN 0-2 SQUAMOUS EPITHELIAL CELLS NONE SEEN 0-5 0-5 NONE SEEN BACTERIA LISA MANY NONE SEEN MANY HYALINE CAST NONE SEEN 0-5 NONE SEEN NONE SEEN Status: FINAL Accession No.: [id number] Collected: 06/29/2021 11:35 am Completed: 07/02/2021 10:46 pm Test Value Last 3 Values CULTURE, URINE, ROUTINE SOURCE: URINE URINE STOOL STOOL STATUS: FINAL FINAL FINAL FINAL ISOLATE 1: SEE NOTE Greater than 100,000 CFU/mL of Escherichia coli (ESBL) E.coli (ESBL) INT GIACOMO AMOX/CLAVULANATE S 8 AMPICILLIN R >=32 1 AMP/SULBACTAM R >=32 CEFAZOLIN R >=64 2 CEFEPIME S 2 CEFTRIAXONE R >=64 CIPROFLOXACIN R >=4 GENTAMICIN S <=1 IMIPENEM S <=0.25 LEVOFLOXACIN R >=8 NITROFURANTOIN R 256 PIP/TAZOBACTAM S <=4 TOBRAMYCIN S <=1 TRIMETHOPRIM/SULFA S <=20 ESBL RESULT: * 3 THIS IS THE RESULT FROM [facility] ON . SHE FAILED MACRODANTIN AND LATER TRIMETHOPRIM. SHEIS ALLERGIC TO MOST OTHER ABX. SHE MAY HAVE NOW ISSUES WITH MERREM. [facility] CULTURES DESPITE ABX SHE KEPT ON HAVING FEVER AND SO I DECIDED TO ADMIT HER. SHE HAD REACTION TO MERREM WITH NAUSEA, CHILLS ETC. I TREATED IT WITHOUT STEROIDS. SHE IS BACK TO BASELINE. SHE HAS ABOVE DEEP SEATED INFECTION IN BLADDER AND HAS FEVER FORM IT. THAT IS WHY SHE IS HERE. SHE FAILED TWO ORAL ABX. NEXT ONE TO TRY IS CEFEPIME IV. SHE IS ALLERGIC TO MANY ANTIBIOTICS. SHE IS WILLING TO TRY THIS. SHE HAS DONE WELL WITH CEFEPIME WITHOUT REACTION. STABLE FO RHOME. TOMORROW S. W WILL HAVE TO WORK ON NEW ANTIBIOTIC NOW. (2) Diabetes mellitus due to underlying condition with chronic kidney disease on chronic dialysis Current Visit: Yes Status: Chronic Plan: ON SMALL DOSE OF JANUVIA FU DONE IN OFFICE. 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 (4) Drug reaction Current Visit: Yes Status: Acute Plan: THIS A POSSIBILITY. I AM NOT SURE IF INFECTION IS GIVING HER CHILLS OR DRUG REACTION IT WILL BE SAFE TO GIVE HER BENADRYL PRN. (5) Chest pain Onset Date: 07/01/14 Current Visit: No Status: Acute Plan: ABOVE. 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 SHE IS CHRONICALLY LOW BUT NOT LOW. CHECK HG. SHE IS NOT TAKING LOVENOX INJECTIONS. THIS MAY BE TRANSIENT. SHE CAN GO TO GI DOCTOR LATER. CHECK WBC IN AM. THIS CAN BE FROM MERREM RECTION. INFECTION IS CONTROLLED. I SUSPECT THIS IS NOT SEPSIS RELATED SHE DOES NOT HAVE SEPSIS.
[2021-07-16 09:31] LABS: Blood Morphology Comment NOT SEEN (NOT SEEN); Platelet Estimate DECR; White Blood Cell Scan OK (OK)
[2021-07-16 09:38] LABS: RBC Red Blood Cell Count 2.75 M/uL (3.86-4.86)
[2021-07-16 10:16] LABS: Ferritin 233.4 ng/mL (8-388)
[2021-07-16] MEDS: AMLODIPINE 5 MG TAB PO SCH (16:02)
[2021-07-16] MEDS: ACETAMINOPHEN 325 MG TABLET PO PRN (20:39)
[2021-07-16] MEDS: ATORVASTATIN 20 MG TAB PO SCH (20:41)
[2021-07-17] MEDS: LEVOTHYROXINE SOD 0.075 MG TAB PO SCH (06:14)
[2021-07-17 06:24] LABS: Absolute Lymphocytes (CBC) 0.3 K/uL (0.7-4.9); Hematocrit 24.4 % (36.0-45.0); Lymphocytes % 21.5 % (15.3-44.8); MPV 8.2 fL (7.6-11.3); RBC Red Blood Cell Count 2.69 M/uL (3.86-4.86)
[2021-07-17 06:30] LABS: Magnesium 2.2 mg/dL (1.8-2.4); Potassium 4.5 mmol/L (3.5-5.1)
[2021-07-17] MEDS: INSULIN -REGULAR HUMAN 50 UNIT/0.5 ML ML SQ SCH ×3 (07:30→16:30)
[2021-07-17] MEDS: LOSARTAN POTASSIUM 50 MG TABLET PO SCH (07:51)
[2021-07-17] MEDS: carvediloL 25 MG TAB PO SCH (07:52)
[2021-07-17] MEDS: FOLIC ACID 1 MG TABLET PO SCH (07:53)
[2021-07-17] MEDS: ISOSORBIDE MONO SR 30 MG TAB PO SCH (07:54)
[2021-07-17] MEDS: FAMOTIDINE 20 MG TAB PO SCH (07:54)
[2021-07-17] MEDS: DOXAZOSIN 2 MG TAB PO SCH (07:54)
[2021-07-17] MEDS: CLOPIDOGREL 75 MG TABLET PO SCH (07:55)
[2021-07-17] MEDS ORDERED: CEFEPIME 1 GM in NA CHLORIDE 0.9% 100 ML IV SCH (09:00)
[2021-07-17 12:14] VITALS: TEMP 97.8
[2021-07-17 14:29] VITALS: O2SAT 97
[2021-07-17] MEDS: AMLODIPINE 5 MG TAB PO SCH (16:39)
[2021-07-17 16:40] VITALS: BP 175/74
--- NOTE | 2021-07-17 17:06 | P.DS ---
Admission Date: 07/14/21 Discharge Date: 07/17/21 Disposition: ROUTINE DISCHARGE Reason for Admission: FEELS A LOT BETTER TODAY - Problems (1) UTI due to extended-spectrum beta lactamase (ESBL) producing Escherichia coli Current Visit: Yes Status: Acute (2) Diabetes mellitus due to underlying condition with chronic kidney disease on chronic dialysis Current Visit: Yes Status: Chronic (3) Coronary artery disease due to type 2 diabetes mellitus Current Visit: Yes Status: Chronic (4) Drug reaction Current Visit: Yes Status: Acute (5) Chest pain Onset Date: 07/01/14 Current Visit: No Status: Acute (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 I TRIED ORAL ABX AND UROLOGIST ALSO BUT BOTH FAILED. I ADMITTED HER FOR MERREM BUT SHE HAD REACTION TO IT. I CHANGED TO CEFEPIME AND SHE TOLERATED WELL. SHE WILL CONTINUE IT FOR 10 DAYS. SHE NEEDS TO GO BACK TO DR. FONG FOR UROLOGY. SHE IS ALLERGIC TO MANY ANTIBIOTICS ALSO SHE HAS PANCYOTPENIA THAT GOT WORSE WITH CEFEPIME BUT STABLE NOW. Vital Signs/Physical Exam: Temp Pulse Resp BP Pulse Ox 97.8 F 69 16 175/74 H 97 07/17/21 12:09 07/17/21 16:39 07/17/21 12:09 07/17/21 16:39 07/17/21 12:09 Laboratory Data at Discharge: WBC 1.5 K/uL (4.3-10.9) L* 07/17/21 06:02 Hgb 8.5 g/dL (12.0-15.0) L 07/17/21 06:02 Hct 24.4 % (36.0-45.0) L 07/17/21 06:02 Plt Count 105 K/uL (152-406) L 07/17/21 06:02 APTT 36.4 SECONDS (24.3-36.9) 07/13/21 18:27 Sodium 137 mmol/L (136-145) 07/17/21 06:02 Potassium 4.5 mmol/L (3.5-5.1) 07/17/21 06:02 BUN 32 mg/dL (7-18) H 07/17/21 06:02 Creatinine 1.74 mg/dL (0.55-1.3) H 07/17/21 06:02 Glucose 121 mg/dL (74-106) H 07/17/21 06:02 Phosphorus 3.6 mg/dL (2.5-4.9) 07/13/21 18:27 Magnesium 2.2 mg/dL (1.8-2.4) 07/17/21 06:02 Total Bilirubin 0.8 mg/dL (0.2-1.0) 07/13/21 18:27 AST 16 U/L (15-37) 07/13/21 18:27 ALT 22 U/L (12-78) 07/13/21 18:27 Alkaline Phosphatase 41 U/L (45-117) L 07/13/21 18:27 Home Medications: Atorvastatin Calcium 20 mg PO BEDTIME 10/09/11 Clopidogrel Bisulfate [Plavix] 75 mg PO DAILY 10/09/11 Carvedilol [Coreg] 25 mg PO BID 10/05/18 Folic Acid 1 mg PO DAILY 10/05/18 Glimepiride [Amaryl*] 2 mg PO DAILY 10/05/18 Isosorbide Mononitrate [Imdur] 60 mg PO DAILY 10/05/18 Losartan Potassium [Cozaar] 100 mg PO DAILY 10/05/18 Ranolazine [Ranolazine ER] 500 mg PO BID 10/05/18 Sitagliptin Phosphate [Januvia*] 100 mg PO DAILY 10/05/18 Allopurinol 50 mg PO DAILY 07/13/21 Amlodipine Besylate 5 mg PO DAILY AT SUPPER 07/13/21 Cholecalciferol (Vitamin D3) [Vitamin D3] 50,000 unit PO SEECOM 07/13/21 Doxazosin Mesylate 2 mg PO BID 07/13/21 Famotidine [Pepcid] 20 mg PO BIDAC 07/13/21 Furosemide [Lasix*] 40 mg PO DAILY 07/13/21 Levothyroxine Sodium 75 mcg PO [id number] 07/13/21 Magnesium Oxide [Magnesium] 250 mg PO DAILY 07/13/21 cloNIDine HCL [Clonidine HCl] 1 tab PO Q2HP PRN 07/13/21 Cefepime HCl 1 gm IV DAILY 10 Days #10 bulkbaginj 07/17/21 New Medications: Cefepime HCl 1 gm IV DAILY 10 Days #10 bulkbaginj Followup: Kevin Owens MD [ACTIVE - CAN ADMIT] - 1-2 Weeks (Call to schedule an appointment)
[2021-07-17 19:50] LABS: Vitamin D 1,25-Dihydroxy Total 23 pg/mL (18-72); Vitamin D,1,25-OH2, D2 <8 pg/mL
--- NOTE | 2021-07-18 07:21 | ECHO ---
HEIGHT: 5 ft 4 in WEIGHT: 182 lb 0 oz DATE OF STUDY: 07/17/[address]: Kevin Owens MD 2-DIMENSIONAL: YES M.MODE: YES DOPPLER: YES COLOR FLOW: YES TDS: NO PORTABLE: YES DEFINITY: NO BUBBLE STUDY: NO DIAGNOSIS: EDEMA/DYSPNEA CARDIAC HISTORY: CATHERIZATION: YES SURGERY: YES PROSTHETIC VALVE: NO PACEMAKER: NO MEASUREMENTS (cm) DIASTOLIC (NORMALS) SYSTOLIC (NORMALS) IVSd 1.2 (0.6-1.2) LA Diam 3.4 (1.9-4.0) LVEF 66% LVIDd 3.4 (3.5-5.7) LVIDs 2.2 (2.0-3.5) %FS 35% LVPWd 1.3 (0.6-1.2) Ao Diam 2.5 (2.0-3.7) 2 DIMENSIONAL ASSESSMENT: RIGHT ATRIUM: NORMAL LEFT ATRIUM: NORMAL RIGHT VENTRICLE: NORMAL LEFT VENTRICLE: NORMAL TRICUSPID VALVE: NORMAL MITRAL VALVE: NORMAL PULMONIC VALVE: NORMAL AORTIC VALVE: NORMAL PERICARDIAL EFFUSION: NONE AORTIC ROOT: NORMAL LEFT VENTRICULAR WALL MOTION: NORMAL. DOPPLER/COLOR FLOW: MILD TRICUSPID REGURGITATION. COMMENTS: NORMAL LEFT VENTRICULAR EJECTION FRACTION 60-65%. NORMAL WALL MOTION. MILD CONCENTRIC LEFT VENTRICULAR HYPERTROPHY. MILD TRICUSPID REGURGITATION. TECHNOLOGIST: FRANCISCO DUBOSE
[2021-07-19 16:34] LABS: Albumin, (SPE) 3.4 g/dL (3.8-4.8); Alpha-1-Globulins 0.4 g/dL (0.2-0.3); Alpha-2-Globulins 0.8 g/dL (0.5-0.9); Gamma Globulins 0.5 g/dL (0.8-1.7); INTERPRETATION REPORT
[2021-07-19 17:05] LABS: Erythropoietin 22.4 mIU/mL (2.6-18.5)
[2021-07-25 10:59] LABS: Immunoglobulin A 41 mg/dL (70-320); Tissue Transglutaminase IgA Ab <1.0 U/mL (<15.0)
== END 2021-07-17 17:59 | disposition home health service (06) | DRG 690 ==
LOC: 2ND 17:02 → OBSVTOIN 07-14 17:42
PROVIDERS: ADMIT Internal Medicine; ATTEND Internal Medicine
PROC: 02HV33Z Insertion of Infusion Device into Superior Vena Cava, Percutaneous Approach (ICD-10-PCS; principal; 2021-07-13)
DX: N39.0 Urinary tract infection, site not specified (principal); Z16.12 Extended spectrum beta lactamase (ESBL) resistance; D61.818 Other pancytopenia; N17.9 Acute kidney failure, unspecified; B96.20 Unspecified Escherichia coli [E. coli] as the cause of diseases classified elsewhere; I25.10 Atherosclerotic heart disease of native coronary artery without angina pectoris; R11.0 Nausea; T36.1X5A Adverse effect of cephalosporins and other beta-lactam antibiotics, initial encounter; Y92.230 Patient room in hospital as the place of occurrence of the external cause; I12.9 Hypertensive chronic kidney disease with stage 1 through stage 4 chronic kidney disease, or unspecified chronic kidney disease; E11.22 Type 2 diabetes mellitus with diabetic chronic kidney disease; N18.30 Chronic kidney disease, stage 3 unspecified; E03.9 Hypothyroidism, unspecified; E78.00 Pure hypercholesterolemia, unspecified; K21.9 Gastro-esophageal reflux disease without esophagitis; R07.89 Other chest pain; R00.2 Palpitations; Z88.2 Allergy status to sulfonamides; Z88.0 Allergy status to penicillin; Z20.822 Contact with and (suspected) exposure to COVID-19
CPT/HCPCS: 0240U; 36415; 36569; 71045; 71046; 71250; 74176; 80048; 80076; 81003; 81015; 82043; 82570; 82607; 82652; 82668; 82728; 82784; 82947; 83036; 83516; 83540; 83735; 84100; 84165; 84443; 84466; 84484; 85025; 85044; 85730; 87040; 87086; 87088; 93005; 93306; G0378; G0379; J0692; J1650; J1815; J2185; J2405; J3475

== ENCOUNTER 2024-07-27 08:28 | Day surgery (SDC) | payer OTHER ==
[2024-07-24 15:30] LABS: Absolute Eosinophils 0.2 K/uL (0-0.5); Absolute Lymphocytes (CBC) 0.7 K/uL (0.7-4.9); Absolute Monocytes 0.6 K/uL (0.1-1.3); Absolute Neutrophil 3.1 K/uL (1.8-8.0); Basophils % 0.6 % (0-1.3); Eosinophils % 3.3 % (0-4.4); Hematocrit 32.6 % (36.0-45.0); Hemoglobin 11.2 g/dL (12.0-15.0); MCH 29.9 pg (27.0-35.0); MCHC 34.3 g/dL (32.0-36.0); MCV 87.1 fL (80-100); MPV 7.5 fL (7.6-11.3); Monocytes % 13.6 % (3.3-12.3); Neutrophils % 67.5 % (41.7-73.7); Platelets 178 thou/uL (152-406); RBC Red Blood Cell Count 3.74 M/uL (3.86-4.86); Red Cell Distribution Width 15.3 % (12.1-15.2)
[2024-07-24 15:39] LABS: PTT, Activated Partial Thromb 30.6 SECONDS (27.2-37.4); Protime INR 1.06
[2024-07-24 15:43] LABS: Anion Gap 10.7 mEq/L (5.0-15.0); Potassium 3.7 mEq/L (3.5-5.1)
--- NOTE | 2024-07-24 21:02 | RAD REPORT ---
EXAMINATION: TWO VIEW CHEST XR CLINICAL INDICATION: pre op for day surgery TECHNIQUE: 2 views of the chest was performed. COMPARISON: 07/14/2021 FINDINGS: The lungs are hyperexpanded suggesting COPD. The heart is moderately enlarged. No displaced fractures evident. Sternotomy wires. IMPRESSION: COPD is suspected without acute finding identified.
[2024-07-27] MEDS ORDERED: CEFAZOLIN SODIUM 2 GM/VIAL ONE (08:56)
[2024-07-27] MEDS ORDERED: ONDANSETRON 4 MG/2 ML VIAL ONE (09:12)
[2024-07-27] MEDS ORDERED: FENTANYL CITR 100 MCG/2 ML ONE (09:12)
[2024-07-27] MEDS ORDERED: propofoL 200 MG/20 ML VIAL IV ONE ×2 (09:12→09:58)
[2024-07-27] MEDS ORDERED: LIDOCAINE 2% MPF 5 ML VIAL ONE (09:12)
[2024-07-27] MEDS: NA CHLORIDE 0.9% 1,000 ML ONE (09:22)
[2024-07-27] MEDS ORDERED: dexAMETHasone 4 MG/ML VIAL ONE (09:58)
[2024-07-27] MEDS: CIPROFLOXACIN 400mg IV 400 MG/200 ML BAG IV ONE (10:00)
[2024-07-27] MEDS ORDERED: GLYCOPYRROLATE 0.2 MG/ML SYR ONE (10:00)
[2024-07-27] MEDS: BUPIVACAINE 0.5% PF 10 ML VIAL ONE (10:14)
--- NOTE | 2024-07-27 10:32 | P.OP ---
Date of Service: 07/27/24 Preop diagnosis: Left-sided headache, rule out temporal arteritis Postop diagnosis: Same Procedure performed: Left temporal artery biopsy with utilization of Doppler device Surgeon: Patel Jimenes MD Sewer Head: Suri ROSAS Estimated blood loss: Minimal Specimen: Left temporal artery biopsy Findings: Normal anatomy Anesthesia: General Complications: None Drains: None Fluids and blood products: Nonapplicable Disposition: Recovery room Operative note: Patient brought to the OR and placed in supine position. General anesthesia began. Patient prepped and draped in usual sterile fashion. Marcaine 0.5% very locally for postop pain control. Doppler device used to isolate a branch of the left temporal artery above the left ear. 15 blade used to make a 4 cm incision over the branch of the temporal artery. Subcutaneous tissue divided and bleeding controlled cautery. Proximal and distal control of the branch of the temporal artery identified as well as a side branch. A 4 cm segment of temporal artery branch was excised and sent to pathology as specimen. 4-0 silk was used to tie off the free ends. Wound irrigated and bleeding controlled cautery. 4-0 chromic used to approximate subcutaneous tissue and close skin. Sterile dressing applied. Patient awakened and taken to recovery room in good general condition. CC: Dr. Owens's office
[2024-07-27] MEDS ORDERED: HYDROCODONE/APAP 7.5/325 MG TAB ONE (11:41)
[2024-07-27] MEDS: HYDROCODONE/APAP 7.5/325 MG TAB PO PRN (11:45)
[2024-07-27 11:53] VITALS: BP 115/42; TEMP 97; O2SAT 96
--- NOTE | 2024-07-27 12:05 | EKG ---
Test Date: 2024-07-24 Test Time: 15:13:18 Service Car Driver: DONOVAN MEASUREMENT RESULTS: Intervals: Rate: 69 VA: 218 QRSD: 96 QT: 430 QTc: 460 [place]: P: 84 VA: 218 QRS: 77 T: 72 INTERPRETIVE STATEMENTS: Sinus rhythm with 1st degree AV block Incomplete right bundle branch block Borderline ECG Compared to ECG 07/13/2021 20:12:45 First degree AV block now present Incomplete right bundle-branch block now present Electronically Signed On 07-27-24 12:04:02 CDT by Anderson Schneider
== END 2024-07-27 12:10 | disposition home or self-care (01) ==
LOC: OR 08:28
PROVIDERS: ATTEND Surgery
PROC: 03BT0ZX Excision of Left Temporal Artery, Open Approach, Diagnostic (ICD-10-PCS; principal; 2024-07-27 10:00)
DX: I70.8 Atherosclerosis of other arteries (principal); E83.59 Other disorders of calcium metabolism
CPT/HCPCS: 37609; 93005; 85025; 80048; 36415; 85610; 82947 ×2; 88305; 85730; 71046; J2704 ×2; J1100; J2003; J3010; J2405; J0744; J7030